=== PATIENT | female | born 1930 ===

== ENCOUNTER → 2016-11-06 | Outpatient (CLI) | payer MEDICARE, OTHER ==
--- NOTE | 2016-11-06 13:13 | XR ---
EXAMINATION TYPE: XR chest 2V DATE OF EXAM: 11/06/2016 COMPARISON: NONE INDICATION: Cough TECHNIQUE: Frontal and lateral views of the chest are obtained. FINDINGS: The heart size is normal. The pulmonary vasculature is normal. The lungs are clear. There is some elevation of the right diaphragm. No suspicious infiltrates are e vident. IMPRESSION: 1. No acute pulmonary process.
== END ==
LOC: RADXRMAIN 12:22
PROVIDERS: ATTEND Internal Medicine
DX: R05 Cough (principal)
CPT/HCPCS: 71020

== ENCOUNTER → 2018-07-15 | Outpatient (CLI) | payer MEDICARE, OTHER ==
--- NOTE | 2018-07-15 21:14 | US ---
EXAMINATION TYPE: US kidneys/renal and bladder DATE OF EXAM: 07/15/2018 COMPARISON: NONE CLINICAL HISTORY: N18.4 Chronic kidney disease, stage 4 (severe). EXAM MEASUREMENTS: Right Kidney: 6.6 x 3.7 x 2.9 cm Left Kidney: 7.8 x 3.6 x 4.2 cm Technically difficult exam. Limited visualization due to atrophic kidneys. Right Kidney: cyst 1.1 x 0.9 x 0.9 cm. Left Kidney: lateral cyst measures 3.7 x 3.2 x 3.2 cm. Bladder: wnl Bilateral Jets seen: No No hydronephrosis or nephrolithiasis. Bladder distends normally. IMPRESSION: Bilateral simple cysts with loss of cortical medullary differentiation compatible with chronic medica l renal disease.
== END | disposition home or self-care (01) ==
LOC: RADUSWWP 15:12
PROVIDERS: ATTEND Internal Medicine
DX: N28.1 Cyst of kidney, acquired (principal); N18.4 Chronic kidney disease, stage 4 (severe)
CPT/HCPCS: 76770

== ENCOUNTER 2020-02-01 15:29 | Inpatient (IN) | payer MEDICARE, OTHER ==
--- NOTE | 2020-02-01 15:51 | ED ---
General Adult HPI - General Chief complaint: Recheck/Abnormal Lab/Rx Stated complaint: Hypertensive, sent by Time Seen by Provider: 02/01/20 15:38 Source: patient, family Mode of arrival: wheelchair - History of Present Illness Initial comments: Dictation was produced using [employer] dictation software. please excuse any grammatical, word or spelling errors. This patient was cared for during a federal and state declared state of emergency secondary to Covid 19 Chief Complaint: 89-year-old female brought in by son for hypertension History of Present Illness: It is an 89-year-old female she was sent in by her primary care physician for elevated blood pressure. Patient is accompanied by son who is a classroom assistant. She is primary language is Azeri. Patient's son is the primary provider of history of present illness. Patient is getting established with a new primary care physician. She was last seen by this individual one month ago. Son does not know what his or her name is. It's previous primary care physician recently retired. She had an appointment last month and had a follow-up appointment today. Allegedly she has kidney problems. Son reports that patient has been asymptomatic. Patient denies any complaints at this time. She had a high measurement for her blood pressure on routine vital sign check. Son does not know what the number was. The ROS documented in this emergency department record has been reviewed and confirmed by me. Those systems with pertinent positive or negative responses have been documented in the HPI. All other systems are other negative and/or noncontributory. PHYSICAL EXAM: General Impression: Alert and oriented x3, not in acute distress HEENT: Normocephalic atraumatic, extra-ocular movements intact, pupils equal and reactive to light bilaterally, mucous membranes moist. Cardiovascular: Heart regular rate and rhythm Chest: Able to complete full sentences, no retractions, no tachypnea Abdomen: abdomen soft, non-tender, non-distended, no organomegaly Musculoskeletal: Pulses present and equal in all extremities, no peripheral edema Motor: no focal deficits noted Neurological: CN II-XII grossly intact, no focal motor or sensory deficits noted Skin: Intact with no visualized rashes Psych: Normal affect and mood ED course: 89-year-old feel presents with clinical presentation consistent with hypertension. Vital signs upon arrival shows blood pressure 230/110, rest of vital signs within acceptable limits. Patient has no pain complaints patient denies any shortness of breath. Denies any numbness and paresthesias to the extremities. Son also reports that patient has been relatively asymptomatic for the last month. She was at her PCPs office for routine appointment according to the son. Laboratory evaluation obtained. CBC unremarkable. Metabolic panel appears to be a baseline. Troponin is negative. Patient given antihypertensive. Considering degree of patient's hypertension and family and patient requested to be admitted. Case is discussed with Dr. Bardales who is agreeable with inpatient admission. Patient given multiple doses of antihypertensives with gradual decrease in blood pressure. Patient be admitted to cardiac telemetry. EKG interpretation: Ventricular rate 61, normal sinus rhythm, TN interval 174, QRS 80, QTc 459. No TN prolongation, no QTC prolongation, no ST or T-wave changes noted. No old EKG for comparison. Overall, this EKG is unremarkable - Related Data Home Medications Medication Instructions Recorded Confirmed Atenolol [Tenormin] 50 mg PO DAILY 02/01/20 02/01/20 Atorvastatin [Lipitor] 80 mg PO HS 02/01/20 02/01/20 Calcitriol [Rocaltrol] 0.25 mcg PO DAILY 02/01/20 02/01/20 Candesartan Cilexetil 8 mg PO BID 02/01/20 02/01/20 Levothyroxine Sodium [Euthyrox] 75 mcg PO DAILY 02/01/20 02/01/20 Omeprazole 20 mg PO DAILY 02/01/20 02/01/20 amLODIPine [Norvasc] 5 mg PO DAILY 02/01/20 02/01/20 glipiZIDE [Glucotrol] 5 mg PO AC-BRKFST 02/01/20 02/01/20 Allergies Allergy/AdvReac Type Severity Reaction Status Date / Time No Known Allergies Allergy Verified 02/01/20 17:08 Review of Systems ROS Statement: Those systems with pertinent positive or pertinent negative responses have been documented in the HPI. ROS Other: All systems not noted in ROS Statement are negative. Past Medical History Past Medical History: Diabetes Mellitus, Hypertension History of Any Multi-Drug Resistant Organisms: None Reported Past Surgical History: Hysterectomy Smoking Status: Never smoker Past Alcohol Use History: None Reported Past Drug Use History: None Reported Course Vital Signs 02/01/20 02/01/20 02/01/20 15:30 16:15 17:41 Temperature 98.8 F Pulse Rate 63 62 58 L Respiratory 18 18 18 Rate Blood Pressure 238/110 190/125 256/126 O2 Sat by Pulse 99 99 98 Oximetry 02/01/20 02/01/20 18:07 18:31 Temperature Pulse Rate 66 Respiratory 18 Rate Blood Pressure 214/108 195/105 O2 Sat by Pulse 98 Oximetry Medical Decision Making - Lab Data Result diagrams: 02/01/20 16:08 02/01/20 16:08 Lab Results 02/01/20 02/01/20 02/01/20 Range/Units 16:08 16:08 16:08 WBC 6.7 (3.8-10.6) k/uL RBC 4.11 (3.80-5.40) m/uL Hgb 12.4 (11.4-16.0) gm/dL Hct 38.3 (34.0-46.0) % MCV 93.0 (80.0-100.0) fL MCH 30.2 (25.0-35.0) pg MCHC 32.5 (31.0-37.0) g/dL RDW 14.0 (11.5-15.5) % Plt Count 153 (150-450) k/uL Neutrophils % 69 % Lymphocytes % 22 % Monocytes % 6 % Eosinophils % 2 % Basophils % 1 % Neutrophils # 4.6 (1.3-7.7) k/uL Lymphocytes # 1.5 (1.0-4.8) k/uL Monocytes # 0.4 (0-1.0) k/uL Eosinophils # 0.1 (0-0.7) k/uL Basophils # 0.0 (0-0.2) k/uL Sodium 141 (137-145) mmol/L Potassium 4.4 (3.5-5.1) mmol/L Chloride 111 H (98-107) mmol/L Carbon Dioxide 20 L (22-30) mmol/L Anion Gap 10 mmol/L BUN 42 H (7-17) mg/dL Creatinine 3.14 H (0.52-1.04) mg/dL Est GFR (CKD-EPI)AfAm 15 (>60 ml/min/1.73 sqM) Est GFR (CKD-EPI)NonAf 13 (>60 ml/min/1.73 sqM) Glucose 151 H (74-99) mg/dL Calcium 9.5 (8.4-10.2) mg/dL Troponin I <0.012 (0.000-0.034) ng/mL Disposition Clinical Impression: Hypertensive disease Disposition: ADMITTED IP TO THIS HOSP Condition: Fair Referrals: None,Stated [Primary Care Provider] - 1-2 days Decision Time: 19:06
[2020-02-01 16:36] LABS: Calcium 9.5 mg/dL (8.4-10.2); Potassium 4.4 mmol/L (3.5-5.1)
[2020-02-01 16:42] LABS: Basophils % (A) 1 %; Eosinophils # (A) 0.1 k/uL (0-0.7); Eosinophils % (A) 2 %; HCT 38.3 % (34.0-46.0); HGB 12.4 gm/dL (11.4-16.0); Lymphocytes # (A) 1.5 k/uL (1.0-4.8); Lymphocytes % (A) 22 %; MCH 30.2 pg (25.0-35.0); MCHC 32.5 g/dL (31.0-37.0); Mean Platelet Volume 8.1; Monocytes # (A) 0.4 k/uL (0-1.0); Monocytes % (A) 6 %; Neutrophils # (A) 4.6 k/uL (1.3-7.7); Neutrophils % (A) 69 %; Platelet Count 153 k/uL (150-450); RBC 4.11 m/uL (3.80-5.40); WBC 6.7 k/uL (3.8-10.6)
[2020-02-01] MEDS ORDERED: LABETALOL 5 MG/ML VIAL MDV IVP STA (17:16)
[2020-02-01] MEDS ORDERED: lisinopriL 5 MG TAB PO STA (17:42)
[2020-02-01] MEDS ORDERED: hydrALAZINE HCL 20 MG/ML 1 ML VIAL IVP STA ×2 (18:09→18:37)
[2020-02-01] MEDS ORDERED: NALOXONE 0.4 MG/ML 1 ML VIAL IV PRN (19:04)
[2020-02-01 19:20] LABS: Appearance,Urine Cloudy (Clear); Bacteria,Urine Many /hpf; Bilirubin,Urine Negative (Negative); Blood,Urine Negative (Negative); Color,Urine Light Yellow; Glucose,Urine (UA) Negative (Negative); Ketones,Urine Negative (Negative); Leukocyte Esterase,Urine Small (Negative); Mucus,Urine Rare /hpf; Nitrite,Urine Negative (Negative); Protein,Urine 2+ (Negative); RBC,Urine 1 /hpf (0-5); Specific Gravity,Urine 1.011 (1.001-1.035); Squamous Epithelial Cell,Urine <1 /hpf (0-4); Urobilinogen,Urine <2.0 mg/dL (<2.0); WBC,Urine 47 /hpf (0-5)
[2020-02-01] MEDS ORDERED: SODIUM CHLORIDE 0.9% 1,000 ML IV ONE (19:30)
[2020-02-01] MEDS ORDERED: GLUCAGON 1 MG/ML VIAL IVP STA (19:30)
[2020-02-01 19:36] LABS: Glucose,Whole Blood 107 mg/dL (75-99)
[2020-02-01] MEDS: SODIUM CHLORIDE 0.9% 1,000 ML IV SCH (19:48)
[2020-02-01 20:42] LABS: Glucose,Whole Blood 191 mg/dL (75-99)
[2020-02-01] MEDS: ATORVASTATIN 80 MG TAB PO SCH (22:48)
[2020-02-01] MEDS: LOSARTAN 50 MG TAB PO SCH (22:48)
[2020-02-01] MEDS: INSULIN ASPART (NovoLOG) 100 UNIT/ML VIAL SQ SCH (22:51)
--- NOTE | 2020-02-01 23:58 | P.HPIM ---
History of Present Illness H&P Date: 02/01/20 Chief Complaint: elevated blood pressure 89 year old female with hypertension and diabetes mellitus , CKD 4 patient has recently established care with new PCP, upon evaluation today , she was found to have elevated blood pressure and was sent to the ED for further management patient does not speak good divehi , and language was a barrier during this interview, however, she was able to understand direct questions and answers with yes and no, she denies any symptoms of chest pain, headache, changes in her vision or hearing, denies any focal neuro deficits, denies any trouble breathing. in the ED, patient son provided the history , i reviewed ED records,. patient presented with elevated blood pressure, but later in the ED after receiving IV BP meds, she had a drop in her blood pressure that improved with IVF hydration . she was admitted for close monitoring of her vital sings. Review of Systems limited review of systems due to language barrier Past Medical History Past Medical History: Diabetes Mellitus, Hypertension History of Any Multi-Drug Resistant Organisms: None Reported Past Surgical History: Hysterectomy Smoking Status: Never smoker Past Alcohol Use History: None Reported Past Drug Use History: None Reported - Past Family History family Family Medical History: No Reported History Medications and Allergies Home Medications Medication Instructions Recorded Confirmed Type Atenolol [Tenormin] 50 mg PO DAILY 02/01/20 02/01/20 History Atorvastatin [Lipitor] 80 mg PO HS 02/01/20 02/01/20 History Calcitriol [Rocaltrol] 0.25 mcg PO DAILY 02/01/20 02/01/20 History Candesartan Cilexetil 8 mg PO BID 02/01/20 02/01/20 History Levothyroxine Sodium [Euthyrox] 75 mcg PO DAILY 02/01/20 02/01/20 History Omeprazole 20 mg PO DAILY 02/01/20 02/01/20 History amLODIPine [Norvasc] 5 mg PO DAILY 02/01/20 02/01/20 History glipiZIDE [Glucotrol] 5 mg PO AC-BRKFST 02/01/20 02/01/20 History Allergies Allergy/AdvReac Type Severity Reaction Status Date / Time No Known Allergies Allergy Verified 02/01/20 17:08 Physical Exam Vitals: Vital Signs Temp Pulse Resp BP Pulse Ox 02/01/20 19:45 62 16 134/70 98 02/01/20 19:40 60 16 112/65 98 02/01/20 19:35 54 L 16 98/61 99 02/01/20 19:25 48 L 16 84/52 99 02/01/20 18:31 195/105 02/01/20 18:07 66 18 214/108 98 02/01/20 17:41 58 L 18 256/126 98 02/01/20 16:15 62 18 190/125 99 02/01/20 15:30 98.8 F 63 18 238/110 99 Intake and Output 02/01/20 02/01/20 02/01/20 06:59 14:59 22:59 Other: Weight 46.266 kg language barrier General: non toxic, no distress, appears at stated age, Derm: no unusual rashes/lesions no unusual ecchymoses, warm, dry. Head: atraumatic, normocephalic, symmetric Eyes: EOMI, anicteric sclera, pupils equal round reactive to light ENT: Nose and ears atraumatic, no thrush, no pharyngeal erythema Neck: No thyromegaly, no cervical lymphadenopathy, trachea midline, supple Mouth: no lip lesion, mucus membranes moist Cardiovascular: S1S2 reg, no murmur, positive posterior tibial pulse bilateral, no edema, capillary refill immediate Lungs: CTA bilateral, no rhonchi, no rales , no accessory muscle use Abdominal: soft, no tenderness to palpation no guarding, no appreciable organomegaly, positive bowel sounds Ext: no gross muscle atrophy, muscle strength 5 out of 5 in all 4 extremities grossly, no contractures Neuro: CN II-XI grossly intact, light touch intact all 4 extremities, finger to nose within normal limits Psych: Alert, orientation to place and person Results CBC & Chem 7: 02/01/20 16:08 02/01/20 16:08 Labs: Abnormal Lab Results - Last 24 Hours (Table) 02/01/20 02/01/20 02/01/20 Range/Units 16:08 18:57 19:30 Chloride 111 H (98-107) mmol/L Carbon Dioxide 20 L (22-30) mmol/L BUN 42 H (7-17) mg/dL Creatinine 3.14 H (0.52-1.04) mg/dL Glucose 151 H (74-99) mg/dL POC Glucose (mg/dL) 107 H (75-99) mg/dL Urine Appearance Cloudy H (Clear) Urine Protein 2+ H (Negative) Ur Leukocyte Esterase Small H (Negative) Urine WBC 47 H (0-5) /hpf Urine Bacteria Many H (None) /hpf Urine Mucus Rare H (None) /hpf 02/01/20 Range/Units 20:41 Chloride (98-107) mmol/L Carbon Dioxide (22-30) mmol/L BUN (7-17) mg/dL Creatinine (0.52-1.04) mg/dL Glucose (74-99) mg/dL POC Glucose (mg/dL) 191 H (75-99) mg/dL Urine Appearance (Clear) Urine Protein (Negative) Ur Leukocyte Esterase (Negative) Urine WBC (0-5) /hpf Urine Bacteria (None) /hpf Urine Mucus (None) /hpf Assessment and Plan Assessment: accelerated hypertension, resolved resume home blood pressure meds close monitoring of vital sings neuro checks Q2hr episode of hypotension and near syncope resolved with IVF in the ED monitor vital signs and library monitor CKD 4, stable avoid nephrotoxic meds monitor renal function and urine output DM , check A1C% insulin sliding scale DVT PPX mechanical CODE STATUS: Full Code Discussed with: Patient Anticipated discharge place: Home
[2020-02-02 06:20] LABS: Glucose,Whole Blood 60 mg/dL (75-99)
[2020-02-02] MEDS: LEVOTHYROXINE 75 MCG TAB PO SCH (06:21)
[2020-02-02 06:39] LABS: Glucose,Whole Blood 85 mg/dL (75-99)
[2020-02-02] MEDS: INSULIN ASPART (NovoLOG) 100 UNIT/ML VIAL SQ SCH ×4 (06:46→21:41)
[2020-02-02] MEDS: atenoloL 50 MG TAB PO SCH (08:46)
[2020-02-02] MEDS: LOSARTAN 50 MG TAB PO SCH ×2 (08:46→20:02)
[2020-02-02] MEDS: PANTOPRAZOLE 40 MG TABLET PO SCH (08:46)
[2020-02-02] MEDS ORDERED: amLODIPine 5 MG TAB PO SCH (09:00)
[2020-02-02 11:40] LABS: Glucose,Whole Blood 133 mg/dL (75-99)
--- NOTE | 2020-02-02 12:41 | ECHOF ---
Referral Reason:HTN, syncooe MEASUREMENTS -------- HEIGHT: 152.4 cm WEIGHT: 46.3 kg BP: 193/84 RVIDd: 2.8 cm (< 3.3) IVSd: 1.1 cm (0.6 - 1.1) LVIDd: 3.4 cm (3.9 - 5.3) LVPWd: 1.1 cm (0.6 - 1.1) IVSs: 1.4 cm LVIDs: 2.5 cm LVPWs: 1.4 cm LA Diam: 2.7 cm (2.7 - 3.8) LAESV Index (A-L): 22.10 ml/m Ao Diam: 3.0 cm (2.0 - 3.7) AV Cusp: 1.1 cm (1.5 - 2.6) MV EXCURSION: 8.460 mm (> 18.000) MV EF SLOPE: 20 mm/s (70 - 150) EPSS: 0.5 cm MV E Waylon: 0.73 m/s MV DecT: 337 ms MV A Waylon: 1.52 m/s MV E/A Ratio: 0.48 AV maxP.79 mmHg AV meanP.01 mmHg AR PHT: 905 ms RAP: 5.00 mmHg RVSP: 28.02 mmHg FINDINGS -------- Sinus rhythm. Suboptimal image quality - poor subcostal views. The left ventricular size is normal. There is borderline concentric left ventricular hypertrophy. Overall left ventricular systolic function is normal with, an EF between 60 - 65 %. The right ventricle is normal in size. Normal LA size by volume 22+/-6 ml/m2. The right atrium is normal in size. Aortic valve is trileaflet and is moderately thickened. There is mild aortic regurgitation. There is mild aortic stenosis present. Peak/mean gradient across the Aortic Valve is 18.79mmHg / 11.01mm Hg. The mitral valve leaflets are moderately thickened. Moderate mitral annular calcification present. Mild mitral regurgitation is present. Mild tricuspid regurgitation present. Right ventricular systolic pressure is normal at < 35 mmHg. Trace/mild (physiologic) pulmonic regurgitation. The aortic root size is normal. IVC Not well visulized. There is no pericardial effusion. CONCLUSIONS -------- 1. The left ventricular size is normal. 2. There is borderline concentric left ventricular hypertrophy. 3. Overall left ventricular systolic function is normal with, an EF between 60 - 65 %. 4. Aortic valve is trileaflet and is moderately thickened. 5. There is mild aortic regurgitation. 6. There is mild aortic stenosis present. 7. Peak/mean gradient across the Aortic Valve is 18.79mmHg / 11.01mmHg. 8. The mitral valve leaflets are moderately thickened. 9. Moderate mitral annular calcification present. 10. Mild mitral regurgitation is present. 11. Mild tricuspid regurgitation present. 12. Trace/mild (physiologic) pulmonic regurgitation. 13. There is no pericardial effusion. CORRECTIONAL CASE MANAGER: Ariella Meza RDCS
--- NOTE | 2020-02-02 16:37 | P.PN ---
Subjective Progress Note Date: 02/02/20 Patient was seen and examined. No acute events overnight. Her son is at bedside providing majority of the history. Son states that patient has no complaints. Son states that he is in charge of pending medications to his mother and she is very compliant with her medication. Objective - Vital Signs Vital signs: Vital Signs Temp 97.6 F 02/02/20 08:40 Pulse 58 L 02/02/20 13:53 Resp 16 02/02/20 11:40 BP 135/87 02/02/20 13:53 Pulse Ox 98 02/02/20 11:40 Intake & Output 02/01/20 02/02/20 02/02/20 18:59 06:59 18:59 Intake Total 240 Output Total 100 Balance 140 Weight 46.266 kg 46.266 kg Intake: Oral 240 Output: Urine 100 Other: Voiding Method Toilet Toilet Bedside Commode Bedside Commode Diaper Diaper # Voids 0 # Bowel Movements 1 1 - Exam General: [non toxic], [no distress], [appears at stated age] Derm: [warm], [dry] Head: [atraumatic], [normocephalic], [symmetric] Eyes: [EOMI], [no lid lag], [anicteric sclera] Mouth: [no lip lesion], [mucus membranes moist] Cardiovascular: [S1S2 reg], [systolic murmur], [positive DP pulse bilateral], Lungs: [CTA bilateral], [no rhonchi, no rales] , [no accessory muscle use] Abdominal: [soft], [ nontender to palpation], [no guarding], [no appreciable organomegaly] Ext: [no gross muscle atrophy], [no edema], [no contractures] Neuro: [no focal neuro deficits] Psych: [Alert], [oriented], [appropriate affect] - Labs CBC & Chem 7: 02/01/20 16:08 02/01/20 16:08 Labs: Abnormal Lab Results - Last 24 Hours (Table) 02/01/20 02/01/20 02/01/20 Range/Units 16:08 18:57 19:30 Chloride 111 H (98-107) mmol/L Carbon Dioxide 20 L (22-30) mmol/L BUN 42 H (7-17) mg/dL Creatinine 3.14 H (0.52-1.04) mg/dL Glucose 151 H (74-99) mg/dL POC Glucose (mg/dL) 107 H (75-99) mg/dL Urine Appearance Cloudy H (Clear) Urine Protein 2+ H (Negative) Ur Leukocyte Esterase Small H (Negative) Urine WBC 47 H (0-5) /hpf Urine Bacteria Many H (None) /hpf Urine Mucus Rare H (None) /hpf 02/01/20 02/02/20 02/02/20 Range/Units 20:41 06:14 11:35 Chloride (98-107) mmol/L Carbon Dioxide (22-30) mmol/L BUN (7-17) mg/dL Creatinine (0.52-1.04) mg/dL Glucose (74-99) mg/dL POC Glucose (mg/dL) 191 H 60 L 133 H (75-99) mg/dL Urine Appearance (Clear) Urine Protein (Negative) Ur Leukocyte Esterase (Negative) Urine WBC (0-5) /hpf Urine Bacteria (None) /hpf Urine Mucus (None) /hpf Microbiology - Last 24 Hours (Table) 02/01/20 18:57 Urine Culture - Preliminary Urine,Voided Assessment and Plan Assessment: Accelerated hypertension Episode of hypotension and near syncope Diabetes mellitus Chronic kidney disease Patient's current blood pressure is 135/87. She has been restarted on her home antihypertensive medication of amlodipine, atenolol and losartan. Echocardiogram shows EF 60-65% with borderline concentric LVH and mild aortic regurgitation, mild aortic stenosis, mild mitral regurgitation and mild tricuspid regurgitation. Plans: Blood pressure significantly improved. We will continue to monitor her vitals overnight. Medications to be adjusted if necessary. Patient had an episode of hypotension and near syncope in the ED. This was thought to be related to labetalol 20 mg IV that she received in the ED. Her hypotension did resolve with glucagon and IV fluids. Plans: Continue to monitor. Telemetry monitoring. [id number] glucose 133. Plans: Insulin sliding scale. Regular accuchecks. Hypoglycemic precautions. Creatinine 3.14. Patient reports history of chronic kidney disease. Plans: Av oid nephrotoxins. Obtain renal ultrasound. [Given her lability of blood pressure, will continue to observe the patient overnight. Anticipate DC home tomorrow if blood pressure continues to be cont rolled. Nephrology consulted for chronic kidney disease. She is pending clinical improvement. Likely DC in 1-2 days.
[2020-02-02 17:19] LABS: Glucose,Whole Blood 131 mg/dL (75-99)
[2020-02-02 20:42] LABS: Glucose,Whole Blood 206 mg/dL (75-99)
[2020-02-02] MEDS: ATORVASTATIN 80 MG TAB PO SCH (21:41)
[2020-02-02] MEDS: SODIUM CHLORIDE 0.9% 1,000 ML IV SCH (21:41)
[2020-02-03 06:15] LABS: Glucose,Whole Blood 104 mg/dL (75-99)
[2020-02-03] MEDS: LEVOTHYROXINE 75 MCG TAB PO SCH (06:36)
[2020-02-03] MEDS: INSULIN ASPART (NovoLOG) 100 UNIT/ML VIAL SQ SCH ×2 (06:36→12:10)
--- NOTE | 2020-02-03 08:23 | US ---
EXAMINATION TYPE: US renals and bladder DATE OF EXAM: 02/03/2020 COMPARISON: Renal ultrasound July 15, 2018 CLINICAL HISTORY: elevated Cr. EXAM MEASUREMENTS: Right Kidney: 6.5 x 3.4 x 3.3 cm Left Kidney: 9.9 x 4.1 x 3.8 cm Technically difficult exam as kidneys are echogenic and hard to visualize. Right Kidney: Atrophied, cyst lower pole measures 1.2 x 1.2 x 1.2 cm. Left Kidney: Multiple cysts, largest upper pole measures 4.5 x 3.7 x 4.1 cm. Bladder: Not well distended. Bilateral Jets seen: no There is increased cortical echogenicity bilaterally. Diminished size right kidney redemonstrated. St able 1.4 cm thin-walled cyst right kidney. Multiple scattered cysts throughout the left kidney includ ing largest thin-walled cyst upper pole level. No gross hydronephrosis bilaterally. Bladder poorly di stended and thus suboptimally evaluated. IMPRESSION: Suboptimal study. No hydronephrosis noted bilaterally. Evidence of chronic medical renal disease redemonstrated.
[2020-02-03] MEDS ORDERED: amLODIPine 10 MG TAB PO SCH (09:00)
[2020-02-03] MEDS: LOSARTAN 50 MG TAB PO SCH (09:13)
[2020-02-03] MEDS: PANTOPRAZOLE 40 MG TABLET PO SCH (09:14)
[2020-02-03] MEDS: atenoloL 50 MG TAB PO SCH (09:14)
[2020-02-03 09:39] LABS: Potassium 3.8 mmol/L (3.5-5.1)
--- NOTE | 2020-02-03 10:10 | P.DS ---
Providers Date of admission: 02/01/20 19:05 Expected date of discharge: 02/03/20 Attending physician: Luci Briones DO Consults: 02/02/20 16:31 Consult Physician Routine Consulting Provider: Ced Easley Consult Reason/Comments: CKD Do you want consulting provider notified?: Yes Primary care physician: Stated None Hospital Course: 89-year-old female with PMH of hypertension, diabetes mellitus, chronic kidney disease stage IV recently established care with new PCP presents to the ED for elevated blood pressure. This was discovered during a routine appointment and patient was asymptomatic. She denied any chest pain, headaches, vision or hearing changes, focal neurologic deficits or shortness of breath in the ED. Her blood pressure when she first came to the ED was 238/110. She was given hydralazine IV and labetalol IV which dropped her blood pressure to 84/52. She had an episode of syncope in the ED which resolved with IVF and glucagon. She was admitted for further management of her blood pressure. Echocardiogram was done which showed EF 60-65% with borderline concentric LVH and mild aortic stenosis and regurgitation, mild Christopher and tricuspid regurgitation. She was restarted on her home antihypertensive medication. Nephrology was consulted for her chronic kidney disease and recommended renal ultrasound which showed chronic renal disease. Nephrology recommended hydralazine 25 mg by mouth 3 times a day in addition to her home medications. She did have a urinalysis which showed small leukocyte esterase with urine culture growing gram-negative bacilli. She received Rocephin while hospitalized and transitioned to Bactrim for discharge. Patient was seen and examined. No acute events overnight. Limited Pashto answering with yes or no. She has no complaints. Requesting to have IV taken out. She denies any chest pain, shortness of breath or palpitations. General: [non toxic], [no distress], [appears at stated age] Derm: [warm], [dry] Head: [atraumatic], [normocephalic], [symmetric] Eyes: [EOMI], [no lid lag], [anicteric sclera] Mouth: [no lip lesion], [mucus membranes moist] Cardiovascular: [S1S2 reg], [systolic murmur], [positive DP pulse bilateral], Lungs: [CTA bilateral], [no rhonchi, no rales] , [no accessory muscle use] Abdominal: [soft], [ nontender to palpation], [no guarding], [no appreciable organomegaly] Ext: [no gross muscle atrophy], [no edema], [no contractures] Neuro: [no focal neuro deficits] Psych: [Alert], [oriented], [appropriate affect] Accelerated hypertension Episode of hypotension and near syncope Diabetes mellitus Chronic kidney disease Patient's current blood pressure is SBP of 200 as discussed with nursing prior to morning medications. She has been restarted on her home antihypertensive medication of amlodipine, atenolol and losartan. Echocardiogram shows EF 60-65% with borderline concentric LVH and mild aortic regurgitation, mild aortic stenos is, mild mitral regurgitation and mild tricuspid regurgitation. Plans: Blood pressure significantly improved. Nephrology recommends hydralazine 25 mg by mouth 3 times a day.. Medications to be adjusted if necessary. Patient had an episode of hypotension and near syncope in the ED. This was thought to be related to labetalol 20 mg IV that she received in the ED. Her hypotension did resolve with glucagon and IV fluids. Plans: Continue to monitor. Telemetry monitoring. [id number] glucose 104. Plans: Insulin sliding scale. Regular accuchecks. Hypoglycemic precautions. Creatinine 3.14. Patient reports history of chronic kidney disease. Renal ultrasound shows medical renal disease Plans: Avoid nephrotoxins. Continue calcitriol. Follow-up nephrology in the outpatient setting. [Anticipated DC home today if blood pressure comes down after morning medication. Hydralazine has been started as recommended by nephrology. She will need to follow-up with her PCP within 3 days and nephrology within 1 week of discharge. This complex discharge took about 35 minutes to complete.] Pertinent Studies: Echocardiogram, renal ultrasound Patient Condition at Discharge: Stable Plan - Discharge Summary Discharge Rx Participant: No New Discharge Prescriptions: New hydrALAZINE HCL [Apresoline] 25 mg PO TID #90 tab Sulfamethox-Tmp 800-160Mg [Bactrim DS 800-160 mg] 1 tab PO Q12HR #4 tab Continue glipiZIDE [Glucotrol] 5 mg PO AC-BRKFST amLODIPine [Norvasc] 5 mg PO DAILY Omeprazole 20 mg PO DAILY Levothyroxine Sodium [Euthyrox] 75 mcg PO DAILY Candesartan Cilexetil 8 mg PO BID Calcitriol [Rocaltrol] 0.25 mcg PO DAILY Atorvastatin [Lipitor] 80 mg PO HS Atenolol [Tenormin] 50 mg PO DAILY Docusate [Colace] 100 mg PO DAILY PRN PRN Reason: Constipation Cyanocobalamin [Vitamin B-12] 500 mcg PO DAILY Discharge Medication List Atenolol [Tenormin] 50 mg PO DAILY 02/01/20 [History] Atorvastatin [Lipitor] 80 mg PO HS 02/01/20 [History] Calcitriol [Rocaltrol] 0.25 mcg PO DAILY 02/01/20 [History] Candesartan Cilexetil 8 mg PO BID 02/01/20 [History] Levothyroxine Sodium [Euthyrox] 75 mcg PO DAILY 02/01/20 [History] Omeprazole 20 mg PO DAILY 02/01/20 [History] amLODIPine [Norvasc] 5 mg PO DAILY 02/01/20 [History] glipiZIDE [Glucotrol] 5 mg PO AC-BRKFST 02/01/20 [History] Cyanocobalamin [Vitamin B-12] 500 mcg PO DAILY 02/02/20 [History] Docusate [Colace] 100 mg PO DAILY PRN 02/02/20 [History] Sulfamethox-Tmp 800-160Mg [Bactrim DS 800-160 mg] 1 tab PO Q12HR #4 tab 02/03/20 [Rx] hydrALAZINE HCL [Apresoline] 25 mg PO TID #90 tab 02/03/20 [Rx] Follow up Appointment(s)/Referral(s): None,Stated [Primary Care Provider] - 1-2 days Ced Easley DO [STAFF PHYSICIAN] - 1 Week Activity/Diet/Wound Care/Special Instructions: Diet; Low salt FU PCP within 3 days of DC. FU with Nephrology within 1 week of DC. Take all meds as advised. Come back to the ED or call 911 for worsening headaches, chest pain, SOB, palpitations, dizziness or syncopal episodes. Discharge Disposition: HOME SELF-CARE
[2020-02-03] MEDS ORDERED: hydrALAZINE HCL 20 MG/ML 1 ML VIAL IVP PRN (10:18)
[2020-02-03] MEDS ORDERED: SODIUM BICARBONATE TAB 650 MG TAB PO SCH (10:30)
--- NOTE | 2020-02-03 10:34 | P.NPCON ---
History of Present Illness - Reason for Consult acute renal failure, chronic renal failure - History of Present Illness Reason for consultation: Acute kidney injury on chronic kidney disease. History of present illness: Patient is a 89-year-old female seen in renal consultation for acute kidney injury on chronic kidney disease. Patient was sent to the hospital for elevated blood pressure. Her blood pressure has been quite high the systolic blood pressure over 200 at times. Dose of amlodipine was increased from 5 mg to 10 mg daily today. She is also on losartan and atenolol. Patient is not a very reliable historian. He is also a language barrier. Patient's creatinine is December 2018 was 2.7 and was 2.9 in February 2019. In December 2019 her creatinine was 3.8. This admission was 3.14 and is fairly stable at 3.22 today. She does have history of kidney disease. She has not been seen in our office outpatient. She has long-standing history of diabetes mellitus as well as high blood pressure. In the emergency her blood pressure did drop down to systolic 80s to 90s with IV antihypertensives and subsequently improved with IV hydration. Blood pressure orally this morning was 151/88. No edema. Denies use of nonsteroidals. Oral intake fair. No vomiting or diarrhea. Vital signs are stable. General: The patient appeared well nourished and normally developed. HEENT: Head exam is unremarkable. Neck is without jugular venous distension. LUNGS: Breath sounds decreased. HEART: Rate and Rhythm are regular. ABDOMEN: Soft, nontender. EXTREMITITES: No clubbing, cyanosis, or edema. Past Medical History Past Medical History: Diabetes Mellitus, Hypertension Additional Past Medical History / Comment(s): Pt was supposed to have eye surgery a year or two ago and was cancelled due to hypertension. Pt was supposed to meet with a cash poster last year and never did. History of Any Multi-Drug Resistant Organisms: None Reported Past Surgical History: Hysterectomy Past Anesthesia/Blood Transfusion Reactions: No Reported Reaction Smoking Status: Never smoker Past Alcohol Use History: None Reported Past Drug Use History: None Reported - Past Family History family Family Medical History: No Reported History Medications and Allergies Home Medications Medication Instructions Recorded Confirmed Type Atenolol [Tenormin] 50 mg PO DAILY 02/01/20 02/01/20 History Atorvastatin [Lipitor] 80 mg PO HS 02/01/20 02/01/20 History Calcitriol [Rocaltrol] 0.25 mcg PO DAILY 02/01/20 02/01/20 History Candesartan Cilexetil 8 mg PO BID 02/01/20 02/01/20 History Levothyroxine Sodium [Euthyrox] 75 mcg PO DAILY 02/01/20 02/01/20 History Omeprazole 20 mg PO DAILY 02/01/20 02/01/20 History amLODIPine [Norvasc] 5 mg PO DAILY 02/01/20 02/01/20 History glipiZIDE [Glucotrol] 5 mg PO AC-BRKFST 02/01/20 02/01/20 History Cyanocobalamin [Vitamin B-12] 500 mcg PO DAILY 02/02/20 02/02/20 History Docusate [Colace] 100 mg PO DAILY PRN 02/02/20 02/02/20 History Sulfamethox-Tmp 800-160Mg [Bactrim 1 tab PO Q12HR #4 tab 02/03/20 Rx DS 800-160 mg] hydrALAZINE HCL [Apresoline] 25 mg PO TID #90 tab 02/03/20 Rx Allergies Allergy/AdvReac Type Severity Reaction Status Date / Time No Known Allergies Allergy Verified 02/01/20 17:08 Physical Exam Vitals: Vital Signs Temp Pulse Pulse Pulse Pulse Resp BP 02/03/20 04:00 97.5 F L 64 58 L 16 151/88 02/03/20 00:00 97.8 F 58 L 58 L 16 160/79 02/02/20 22:36 188/84 02/02/20 20:00 98.5 F 60 16 187/84 02/02/20 16:55 98.6 F 68 16 140/93 02/02/20 13:53 58 L 02/02/20 11:40 70 58 L 16 163/77 BP Pulse Ox 02/03/20 04:00 98 02/03/20 00:00 98 02/02/20 22:36 02/02/20 20:00 97 02/02/20 16:55 99 02/02/20 13:53 135/87 02/02/20 11:40 98 Intake and Output 02/02/20 02/03/20 02/03/20 22:59 06:59 14:59 Intake Total 120 Output Total 300 Balance 120 -300 Intake: Oral 120 Output: Urine 300 Other: Voiding Method Toilet Toilet Bedside Commode Bedside Commode Diaper Diaper # Voids 0 2 # Bowel Movements 1 Weight 46.1 kg Results - Lab Results Most recent lab results Calcium 9.0 mg/dL (8.4-10.2) 02/03/20 08:50 02/01/20 16:08 02/03/20 08:50 Assessment and Plan Plan: Assessment: 1. Acute kidney injury secondary to hemodynamic ATN. Creatinine 3.14 on admission and is fairly stable at 3.22 today. No evidence of hydronephrosis noted on kidney ultrasound. 2. Chronic kidney disease most likely stage IV. Creatinine in December 2018 was 2.7. December 2019 it was 3.8. 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 3. UTI with urine culture positive for gram-negative bacilli maintained on antibiotics. 4. Accelerated hypertension. Better controlled. 5. Right renal atrophy. There is concern for renal artery stenosis. 6. Metabolic acidosis secondary to acute kidney injury. Plan: Encourage oral intake. Quantify proteinuria. Maintain current antihypertensives. Dose of amlodipine increased today. Add hydralazine 10 mg IV every 4 hours as needed for systolic blood pressure greater than 160. If she continues to require the IV hydralazine, I will add scheduled oral hydralazine. Add oral sodium bicarb. Check renal ultrasound with Doppler. Avoid nephrotoxins. Patient will need to follow-up outpatient to establish chronic kidney disease care. Thank you for the consultation. I will continue to follow the patient with you during her hospital stay.
[2020-02-03 11:12] VITALS: TEMP 98.4
[2020-02-03 11:13] VITALS: BP 186/78; RESP 16
--- NOTE | 2020-02-03 11:22 | US ---
EXAMINATION TYPE: US renal artery duplex complete DATE OF EXAM: 02/03/2020 COMPARISON: Renal US performed same day CLINICAL HISTORY: htn, right renal atrophy. MEASUREMENTS: RENAL SIZE: Rt Kidney: 6.5 x 3.4 x 3.3 cm Lt Kidney: 9.9 x 4.1 x 3.8 cm RESISTANCE INDEX Right: 0.53 Left: 0.71 RA/AO RATIO (< 3.5 ) Right: 1.4 Left: 1.5 RA VELOCITY ( < 180 cm/s) Right: 68 Left: 72 Extremely limited study due to 89 year old patient being unable to hold breath for exam. Kidneys are echogenic and difficult to see. Flash artifact limiting doppler evaluation. Renals demonstrate multiple cysts. Limited evaluation of right renal artery. No elevated velocities demonstrated on dopplers obtained. Left renal artery seen better than right with no elevated velociti es demonstrated. No ultrasound evidence for renal artery stenosis on limited exam. IMPRESSION: Suboptimal study particularly on the right without convincing ultrasound evidence for foc al renal artery stenosis. Advise further investigation with CTA or MRA of the abdomen if this remains clinical concern.
[2020-02-03 11:34] LABS: Glucose,Whole Blood 266 mg/dL (75-99)
[2020-02-03 14:21] VITALS: PULSE 61
--- NOTE | 2020-02-05 13:16 | CDI ---
Documentation Clarification Form Date: 02/05/20 From: Kari Jones CCS Phone: If you have a question about this query, please contact Kayleigh Khan, Manager Database at [phone] between 8am and 5pm. Admit Date: 02/01/20 Discharge Date:02/03/20 Patient Name: Shannan Patel Visit Number: [id number] ATTENTION: The Clinical Documentation Specialists (CDI) and [facility] Coding Staff appreciate your assistance in clarifying documentation. Please respond to the clarification below the line at the bottom and electronically sign. The CDI & [facility] Coding staff will review the response and follow-up if needed. Please note: Queries are made part of the Legal Health Record. If you have any questions, please contact the author of this message via ITS. Dear Dr. Andrews, The patient presented with accelerated hypertension. History/Risk Factors: HTN, CKD, UTI, DM, ATN Clinical Indicators: Accelerated blood pressure Vital Signs: BP 230/110, 256/126, 238/110 Treatment: Apresoline 10 mg IVP, Trandate 20 mg IVP, Norvasc 10 mg PO Daily Consults: In your professional opinion, can you please clarify accelerated hypertension? Hypertensive Urgency Hypertensive Emergency Other, please specify Unable to determine No longer on staff. DB 03/13/20 CARMELO
== END 2020-02-03 15:12 | disposition home health service (06) | DRG 682 ==
LOC: EC 15:29 → 3SCARD 19:05
PROVIDERS: ADMIT Internal Medicine; ATTEND Internal Medicine
DX: I13.10 Hypertensive heart and chronic kidney disease without heart failure, with stage 1 through stage 4 chronic kidney disease, or unspecified chronic kidney disease (principal); N17.0 Acute kidney failure with tubular necrosis; E87.2 Acidosis; N18.4 Chronic kidney disease, stage 4 (severe); N39.0 Urinary tract infection, site not specified; E11.22 Type 2 diabetes mellitus with diabetic chronic kidney disease; I95.9 Hypotension, unspecified; Z66 Do not resuscitate; N05.8 Unspecified nephritic syndrome with other morphologic changes; I08.3 Combined rheumatic disorders of mitral, aortic and tricuspid valves; K59.00 Constipation, unspecified; Z79.899 Other long term (current) drug therapy; Z79.890 Hormone replacement therapy; Z79.84 Long term (current) use of oral hypoglycemic drugs; Z90.710 Acquired absence of both cervix and uterus
CPT/HCPCS: 36415; 76770; 80048; 81001; 84484; 85025; 87077; 87086; 87186; 93005; 93306; 93975; 96361; 96374; 96375; 99284

== ENCOUNTER 2020-02-16 16:57 | Inpatient (IN) | payer MEDICARE, OTHER ==
--- NOTE | 2020-02-16 17:40 | ED ---
General Adult HPI - General Chief complaint: Abdominal Pain Stated complaint: abd pain Time Seen by Provider: 02/16/20 17:10 Source: patient, EMS Mode of arrival: EMS Limitations: no limitations - History of Present Illness Initial comments: Dictation was produced using [employer] dictation software. please excuse any grammatical, word or spelling errors. This patient was cared for during a federal and state declared state of emergency secondary to Covid 19 Chief Complaint: 89-year-old female presents with abdominal pain History of Present Illness: An is an 89-year-old female she has past medical history of diabetes, hypertension and hysterectomy. She was brought by her son who currently resides in [place]. Patient was recently seen and admitted to our hospital for elevated blood pressure. Her son reports that they were just w atching TV when she began complaining of lower abdominal pain. Patient is a poor historian. Son asked her multiple questions however she refused. An associated appear bit nauseated. Patient is a poor historian. She states she feels okay now Son reports that her symptoms only began a few hours ago. His concern that perhaps she has a urine infection. The ROS documented in this emergency department record has been reviewed and confirmed by me. Those systems with pertinent positive or negative responses have been documented in the HPI. All other systems are other negative and/or noncontributory. PHYSICAL EXAM: General Impression: Alert and oriented x3, not in acute distress HEENT: Normocephalic atraumatic, extra-ocular movements intact, pupils equal and reactive to light bilaterally, mucous membranes moist. Cardiovascular: Heart regular rate and rhythm Chest: Able to complete full sentences, no retractions, no tachypnea Abdomen: abdomen soft, tenderness to palpation in the bilateral lower abdominal quadrants, non-distended, no organomegaly Musculoskeletal: Pulses present and equal in all extremities, no peripheral edema Motor: no focal deficits noted Neurological: CN II-XII grossly intact, no focal motor or sensory deficits noted Skin: Intact with no visualized rashes Psych: Normal affect and mood ED course: 89-year-old male presents with chief complaint of abdominal pain. Patient is a poor historian. Son at bedside reports that her symptoms began a couple hours ago. Vital signs upon arrival are within acceptable limits. Laboratory evaluation obtained. CBC remarkable. Metabolic panel shows elevated renal markers which appear to be around patient's baseline. Lipase is 3921. CT of the abdomen and pelvis without contrast was obtained showing cholelithiasis. Is also findings of colitis.Gallbladder ultrasound shows multiple gallstones. Clinical presentation concerning for gallstone pancreatitis. Case is discussed with Dr. Monahan was went except patient's care. General surgery and gastroenterology will be consulted. EKG interpretation: Ventricular rate 57, sinus bradycardia,. Interval 162, QRS 90, QTC 473. No NM prolongation, no QTC prolongation, no ST or T-wave changes noted. EKG compared to over 12/24/2019 showing no changes. Overall, this EKG is unremarkable - Related Data Home Medications Medication Instructions Recorded Confirmed Atenolol [Tenormin] 50 mg PO DAILY 02/01/20 02/16/20 Atorvastatin [Lipitor] 80 mg PO HS 02/01/20 02/16/20 Calcitriol [Rocaltrol] 0.25 mcg PO DAILY 02/01/20 02/16/20 Candesartan Cilexetil 8 mg PO BID 02/01/20 02/16/20 Levothyroxine Sodium [Euthyrox] 75 mcg PO DAILY 02/01/20 02/16/20 Omeprazole 20 mg PO DAILY 02/01/20 02/16/20 amLODIPine [Norvasc] 5 mg PO DAILY 02/01/20 02/16/20 glipiZIDE [Glucotrol] 5 mg PO AC-BRKFST 02/01/20 02/16/20 Cyanocobalamin [Vitamin B-12] 500 mcg PO DAILY 02/02/20 02/16/20 Docusate [Colace] 100 mg PO DAILY PRN 02/02/20 02/16/20 Previous Rx's Medication Instructions Recorded hydrALAZINE HCL [Apresoline] 25 mg PO TID #90 tab 02/03/20 Allergies Allergy/AdvReac Type Severity Reaction Status Date / Time No Known Allergies Allergy Verified 02/16/20 20:21 Review of Systems ROS Statement: Those systems with pertinent positive or pertinent negative responses have been documented in the HPI. ROS Other: All systems not noted in ROS Statement are negative. Past Medical History Past Medical History: Diabetes Mellitus, Hypertension Additional Past Medical History / Comment(s): Pt was supposed to have eye surgery a year or two ago and was cancelled due to hypertension. Pt was supposed to meet with a substance abuse therapist last year and never did. History of Any Multi-Drug Resistant Organisms: None Reported Past Surgical History: Hysterectomy Past Anesthesia/Blood Transfusion Reactions: No Reported Reaction Smoking Status: Never smoker Past Alcohol Use History: None Reported Past Drug Use History: None Reported - Past Family History family Family Medical History: No Reported History General Exam Limitations: no limitations Course Vital Signs 02/16/20 02/16/20 02/16/20 17:08 19:27 21:38 Temperature 97.4 F L Pulse Rate 61 82 56 L Respiratory 16 18 Rate Blood Pressure 185/87 192/87 180/84 O2 Sat by Pulse 97 96 Oximetry Medical Decision Making - Lab Data Result diagrams: 02/16/20 17:33 02/16/20 17:33 Lab Results 02/16/20 02/16/20 02/16/20 Range/Units 17:33 17:33 17:33 WBC 7.0 (3.8-10.6) k/uL RBC 3.83 (3.80-5.40) m/uL Hgb 11.8 (11.4-16.0) gm/dL Hct 34.9 (34.0-46.0) % MCV 91.3 (80.0-100.0) fL MCH 30.9 (25.0-35.0) pg MCHC 33.8 (31.0-37.0) g/dL RDW 14.1 (11.5-15.5) % Plt Count 145 L (150-450) k/uL MPV 8.1 Neutrophils % 72 % Lymphocytes % 17 % Monocytes % 5 % Eosinophils % 3 % Basophils % 0 % Neutrophils # 5.0 (1.3-7.7) k/uL Lymphocytes # 1.2 (1.0-4.8) k/uL Monocytes # 0.4 (0-1.0) k/uL Eosinophils # 0.2 (0-0.7) k/uL Basophils # 0.0 (0-0.2) k/uL Sodium 135 L (137-145) mmol/L Potassium 5.0 (3.5-5.1) mmol/L Chloride 109 H (98-107) mmol/L Carbon Dioxide 20 L (22-30) mmol/L Anion Gap 6 mmol/L BUN 50 H (7-17) mg/dL Creatinine 3.07 H (0.52-1.04) mg/dL Est GFR (CKD-EPI)AfAm 15 (>60 ml/min/1.73 sqM) Est GFR (CKD-EPI)NonAf 13 (>60 ml/min/1.73 sqM) Glucose 185 H (74-99) mg/dL Calcium 8.8 (8.4-10.2) mg/dL Total Bilirubin 0.6 (0.2-1.3) mg/dL AST 44 H (14-36) U/L ALT 34 (4-34) U/L Alkaline Phosphatase 53 (38-126) U/L Total Protein 6.2 L (6.3-8.2) g/dL Albumin 3.5 (3.5-5.0) g/dL Lipase 3921 H (23-300) U/L Urine Color Light Yellow Urine Appearance Clear (Clear) Urine pH 6.0 (5.0-8.0) Ur Specific [place] 1.010 (1.001-1.035) Urine Protein 2+ H (Negative) Urine Glucose (UA) 1+ H (Negative) Urine Ketones Negative (Negative) Urine Blood Negative (Negative) Urine Nitrite Negative (Negative) Urine Bilirubin Negative (Negative) Urine Urobilinogen <2.0 (<2.0) mg/dL Ur Leukocyte Esterase Negative (Negative) Urine RBC 1 (0-5) /hpf Urine WBC 1 (0-5) /hpf Ur Squamous Epith Cells <1 (0-4) /hpf Urine Bacteria Occasional H (None) /hpf Urine Mucus Rare H (None) /hpf Disposition Clinical Impression: Gallstone pancreatitis Disposition: ADMITTED IP TO THIS [facility] Condition: Fair Referrals: None,Stated [Primary Care Provider] - 1-2 days Decision Time: 22:03
[2020-02-16 17:57] LABS: Basophils % (A) 0 %; Eosinophils # (A) 0.2 k/uL (0-0.7); Eosinophils % (A) 3 %; HCT 34.9 % (34.0-46.0); HGB 11.8 gm/dL (11.4-16.0); Lymphocytes # (A) 1.2 k/uL (1.0-4.8); Lymphocytes % (A) 17 %; MCH 30.9 pg (25.0-35.0); MCHC 33.8 g/dL (31.0-37.0); MCV 91.3 fL (80.0-100.0); Mean Platelet Volume 8.1; Monocytes # (A) 0.4 k/uL (0-1.0); Monocytes % (A) 5 %; Neutrophils % (A) 72 %; Platelet Count 145 k/uL (150-450); RBC 3.83 m/uL (3.80-5.40); RDW 14.1 % (11.5-15.5)
[2020-02-16 18:10] LABS: Albumin 3.5 g/dL (3.5-5.0); Calcium 8.8 mg/dL (8.4-10.2); Total Bilirubin 0.6 mg/dL (0.2-1.3); Total Protein 6.2 g/dL (6.3-8.2)
--- NOTE | 2020-02-16 19:27 | CT ---
EXAMINATION TYPE: CT abdomen pelvis wo con DATE OF EXAM: 02/16/2020 COMPARISON: None HISTORY: Generalized pain with nausea CT DLP: 323.4 mGycm Automated exposure control for dose reduction was used. Images obtained from the diaphragm to the floor the pelvis without contrast. FINDINGS: Heart is enlarged. There is some patchy atelectasis and minimal infiltrate at the lung bases. There i s no pericardial effusion. There is no pleural effusion. Thoracic aorta is atheromatous. There are multiple calcified gallstones. Gallbladder is large and measures 4 cm in diameter. Liver shows no focal defect. The stomach is large. Spleen is intact. There is no sign of pancreatic m ass. There is mild wall thickening of the stomach. There is 2 cm low-density left adrenal mass consistent with benign disease. There are renal multiple cortical cysts that measure up to 4 cm. There is no retroperitoneal adenopathy. There is no hydroneph rosis. Ureters are not dilated. Abdominal aorta is atheromatous. There is a 3 x 1.5 cm fat density ma ss at the cecum consistent with lipoma. There is 3 cm low-density mass consistent with lipoma of the distal transverse colon. Bladder distends smoothly. There is no evidence of a pelvic mass. There is m ild wall thickening of the rectum. There are numerous sigmoid diverticula. I see no sign of diverticu litis. Appendix is not definitely seen. There is no sign of thickened appendix. There are multiple los o michael the lower anterior abdomen. There is no inguinal hernia. Lumbar vertebra have normal alignment. Posterior elements are intact. Bony pelvis is intact. Lumbar v ertebra show no compression fracture. Hip joints are intact. IMPRESSION: Mild atelectasis and scarring at the lung bases. Cholelithiasis. Mild gastric wall thickening could r elate to hypertrophic gastritis. No evidence of a bowel obstruction. There is evidence of a lipoma of the ascending colon and also the distal transverse colon. Atherosclerotic vascular disease. Colonic diverticulosis without diverticulitis. Mild wall thickening of the rectum suggestive of focal colitis.
--- NOTE | 2020-02-16 20:47 | US ---
EXAMINATION TYPE: US gallbladder DATE OF EXAM: 02/16/2020 COMPARISON: CLINICAL HISTORY: pancreatitis. RUQ pain. abn labs. EXAM MEASUREMENTS: Liver Length: 10.1 cm Gallbladder Wall: 0.2 cm CBD: 0.6 cm Right Kidney: 6.7 x 3.0 x 3.6 cm Limited due to overlying bowel gas Pancreas: Echogenic and heterogenous. Tail obscured by overlying bowel gas Liver: Scanned through ribs due to bowel gas. Appears small in size. Gallbladder: Multiple mobile foci Evidence for sonographic Sarmiento's sign: neg CBD: wnl Right Kidney: Appears small in size. Echogenic. Multiple cystic lesions seen with largest measured ; lower = 1.2 x 0.8 x 1.1 cm and upper= 1.2 x 1.1 x 1.2 cm. IMPRESSION: Multiple gallstones. No dilated ducts. Small right renal cortical cysts. No free fluid.
[2020-02-16 20:53] LABS: Appearance,Urine Clear (Clear); Bacteria,Urine Occasional /hpf; Bilirubin,Urine Negative (Negative); Blood,Urine Negative (Negative); Color,Urine Light Yellow; Glucose,Urine (UA) 1+ (Negative); Ketones,Urine Negative (Negative); Leukocyte Esterase,Urine Negative (Negative); Mucus,Urine Rare /hpf; Nitrite,Urine Negative (Negative); Protein,Urine 2+ (Negative); RBC,Urine 1 /hpf (0-5); Squamous Epithelial Cell,Urine <1 /hpf (0-4); Urobilinogen,Urine <2.0 mg/dL (<2.0); WBC,Urine 1 /hpf (0-5)
[2020-02-16] MEDS ORDERED: MORPHINE SULFATE 2 MG/ML SYRINGE IV PRN (22:03)
[2020-02-16] MEDS ORDERED: ONDANSETRON 4 MG/2 ML VIAL IVP PRN (22:03)
[2020-02-16] MEDS ORDERED: ACETAMINOPHEN TAB 325 MG TAB PO PRN (22:03)
[2020-02-16] MEDS ORDERED: NALOXONE 0.4 MG/ML 1 ML VIAL IV PRN (22:03)
[2020-02-16] MEDS ORDERED: SODIUM CHLORIDE 0.9% 1,000 ML IV SCH (22:15)
[2020-02-16 23:37] LABS: Glucose,Whole Blood 132 mg/dL (75-99)
--- NOTE | 2020-02-16 23:51 | P.HPIM ---
History of Present Illness H&P Date: 02/16/20 Chief Complaint: abd pain 89-year-old female with diabetes mellitus, hypertension, CKD Patient comes in due to sudden onset abdominal pain. Patient seems to have some language barrier or very hard of hearing she is very poor historian. I asked the one question and she would either not answer or just gives me an unrelated answer. I reviewed medical records and discussed the patient condition with the ER doctor who was able to talk to her son who was available earlier Seems like patient was watching TV when suddenly started experiencing abdominal pain she described as severe however currently she keeps telling me that pain is gone and that she's feeling fine she wants to go home. And she wouldn't add anything to the history In the ED workup showed elevated lipase suspicious for pancreatitis abdominal CAT scan and ultrasound of the liver showed multiple gallstones in the gallbladder, computed tomography scan showed lipoma the ascending and transverse colon with possible focal colitis Review of Systems Unable to obtain proper review of systems due to patient hard of hearing or language barrier she just refuses to answer questions properly Past Medical History Past Medical History: Diabetes Mellitus, Hypertension, Renal Disease History of Any Multi-Drug Resistant Organisms: None Reported Past Surgical History: Hysterectomy Past Anesthesia/Blood Transfusion Reactions: No Reported Reaction Smoking Status: Never smoker Past Alcohol Use History: None Reported Past Drug Use History: None Reported - Past Family History family Family Medical History: No Reported History Medications and Allergies Home Medications Medication Instructions Recorded Confirmed Type Atenolol [Tenormin] 50 mg PO DAILY 02/01/20 02/16/20 History Atorvastatin [Lipitor] 80 mg PO HS 02/01/20 02/16/20 History Calcitriol [Rocaltrol] 0.25 mcg PO DAILY 02/01/20 02/16/20 History Candesartan Cilexetil 8 mg PO BID 02/01/20 02/16/20 History Levothyroxine Sodium [Euthyrox] 75 mcg PO DAILY 02/01/20 02/16/20 History Omeprazole 20 mg PO DAILY 02/01/20 02/16/20 History amLODIPine [Norvasc] 5 mg PO DAILY 02/01/20 02/16/20 History glipiZIDE [Glucotrol] 5 mg PO AC-[id number] 02/01/20 02/16/20 History Cyanocobalamin [Vitamin B-12] 500 mcg PO DAILY 02/02/20 02/16/20 History Docusate [Colace] 100 mg PO DAILY PRN 02/02/20 02/16/20 History hydrALAZINE HCL [Apresoline] 25 mg PO TID #90 tab 02/03/20 02/16/20 Rx Allergies Allergy/AdvReac Type Severity Reaction Status Date / Time No Known Allergies Allergy Verified 02/16/20 20:21 Physical Exam Vitals: Vital Signs Temp Pulse Resp BP Pulse Ox 02/16/20 22:06 97.5 F L 02/16/20 21:38 56 L 18 180/84 96 02/16/20 19:27 82 192/87 02/16/20 17:08 97.4 F L 61 16 185/87 97 Intake and Output 02/16/20 02/16/20 02/17/20 14:59 22:59 06:59 Other: Weight 47.627 kg Constitutional: No acute distress, well-nourished, pleasant Eyes: Anicteric sclerae, moist conjunctiva, Pupils equal round reactive to light ENMT: NC/AT Oropharynx clear, no erythema, no exudates Neck: Supple, FROM, no masses, or JVD No carotid bruits No thyromegaly Lungs: Clear to auscultation Clear to percussion Normal respiratory effort, no accessory muscle use Cardiovascular: Heart regular in rate and rhythm, No murmurs, gallops, or rubs No peripheral edema Abdominal: Soft Nontender, no guarding, rebound or rigidity Abdomen moving with respiration Normoactive bowel sounds No hepatomegaly, No splenomegaly No palpable mass No abdominal wall hernia noted Skin: Normal temperature, tone, texture, turgor No induration No subcutaneous nodules No rash, lesions No ulcers Extremities: No digital cyanosis No clubbing Pedal pulses intact and symmetrical Radial pulses intact and symmetrical No calf tenderness Psychiatric: Alert and oriented to person, place Appropriate affect fair judgement Neuro Muscles Strength 4/5 in all 4 extremities Sensation to light touch grossly present throughout Cranial nerves II-XII grossly intact No focal sensory deficits Lymphatics: no palpable cervical or supraclavicular , or inguinal lymph nodes Results CBC & Chem 7: 02/16/20 17:33 02/16/20 17:33 Labs: Abnormal Lab Results - Last 24 Hours (Table) 1102/16/20 02/16/20 Range/Units 17:33 17:33 17:33 Plt Count 145 L (150-450) k/uL Sodium 135 L (137-145) mmol/L Chloride 109 H (98-107) mmol/L Carbon Dioxide 20 L (22-30) mmol/L BUN 50 H (7-17) mg/dL Creatinine 3.07 H (0.52-1.04) mg/dL Glucose 185 H (74-99) mg/dL POC Glucose (mg/dL) (75-99) mg/dL AST 44 H (14-36) U/L Total Protein 6.2 L (6.3-8.2) g/dL Lipase 3921 H (23-300) U/L Urine Protein 2+ H (Negative) Urine Glucose (UA) 1+ H (Negative) Urine Bacteria Occasional H (None) /hpf Urine Mucus Rare H (None) /hpf 02/16/20 Range/Units 23:36 Plt Count (150-450) k/uL Sodium (137-145) mmol/L Chloride (98-107) mmol/L Carbon Dioxide (22-30) mmol/L BUN (7-17) mg/dL Creatinine (0.52-1.04) mg/dL Glucose (74-99) mg/dL POC Glucose (mg/dL) 132 H (75-99) mg/dL AST (14-36) U/L Total Protein (6.3-8.2) g/dL Lipase (23-300) U/L Urine Protein (Negative) Urine Glucose (UA) (Negative) Urine Bacteria (None) /hpf Urine Mucus (None) /hpf Assessment and Plan Assessment: Acute abdominal pain possibly secondary to underlying pancreatitis second to gallstones Nothing by mouth IV fluid hydration Pain control with opiates GI consultation Imaging of the abdomen suggested multiple gallstones and mild lipoma of the ascending and transverse colon, focal colitis Hypertensive urgency, uncontrolled Resume home medications Clonidine when necessary for systolic blood pressure above 180 Close monitoring of vital signs CK D stage IV Monitor renal function Monitor urine output Avoid nephrotoxic meds Diabetes mellitus insulin sliding scale hyperlipidemia resume Lipitor Hypothyroidism Synthroid CODE STATUS:full code DVT prophylaxis: heparin sc tid Discussed with: Patient, ER, RN Anticipated length of stay > than [address]: home A total of 75 minutes was spent on the care of this complex patient more than 50% of the time was spent in counseling and care coordination.
[2020-02-17] MEDS ORDERED: cloNIDine HCL 0.2 MG TAB PO PRN
[2020-02-17] MEDS ORDERED: MORPHINE SULFATE 2 MG/ML SYRINGE IV PRN
[2020-02-17] MEDS: LACTATED RINGERS 1,000 ML IV SCH ×3 (01:44→20:30)
[2020-02-17] MEDS: LOSARTAN 50 MG TAB PO SCH ×3 (01:44→20:33)
[2020-02-17] MEDS: hydrALAZINE HCL 25 MG TAB PO SCH ×4 (01:44→20:33)
[2020-02-17] MEDS: HEPARIN SODIUM,PORCINE 5,000 UNIT/ML 1 ML VIAL SQ SCH ×3 (01:44→18:18)
[2020-02-17 06:35] LABS: Albumin 3.5 g/dL (3.5-5.0); Calcium 9.2 mg/dL (8.4-10.2); Potassium 4.6 mmol/L (3.5-5.1); Total Bilirubin 0.5 mg/dL (0.2-1.3); Total Protein 6.3 g/dL (6.3-8.2)
[2020-02-17] MEDS ORDERED: DOCUSATE 100 MG CAP PO PRN (09:00)
[2020-02-17] MEDS: LEVOTHYROXINE 75 MCG TAB PO SCH (09:25)
[2020-02-17] MEDS: PANTOPRAZOLE 40 MG TABLET PO SCH (09:25)
[2020-02-17] MEDS: atenoloL 50 MG TAB PO SCH (09:25)
[2020-02-17] MEDS: amLODIPine 5 MG TAB PO SCH (09:25)
[2020-02-17] MEDS ORDERED: SODIUM CHLORIDE 0.9% 1,000 ML IV SCH (09:45)
--- NOTE | 2020-02-17 12:08 | CONS ---
CONSULTATION DATE OF DICTATION: February 17, 2020. REQUESTING PHYSICIAN: Dr. Vargas REASON FOR CONSULTATION: Acute pancreatitis. HISTORY OF PRESENT ILLNESS: The patient is an 89-year-old [place] lady with history of diabetes mellitus, hypertension, was admitted to the hospital with acute pancreatitis. The patient is a very poor historian and because of the language barrier, I cannot communicate with her. As per the nursing staff, apparently she did experience some abdominal pain and had some nausea, vomiting, and she was brought into the emergency room and was noted to have elevated lipase consistent with acute pancreatitis. She also had CT of the abdomen done that showed multiple gallstones and questionable focal colitis involving the transverse colon and descending colon. As per the nursing staff, this morning she has not been complaining of any abdominal pain. She had no nausea, vomiting. No fever, chills, night sweats. PAST MEDICAL HISTORY: Diabetes mellitus, hypertension, chronic kidney disease. PAST SURGICAL HISTORY: Hysterectomy. MEDICATIONS: Medications at home include Tenormin, Lipitor, calcitriol, candesartan, levothyroxine, omeprazole, Norvasc, Glucotrol, vitamin B12, Colace, and Apresoline. ALLERGIES: None. SOCIAL HISTORY: No smoking. No alcohol use. FAMILY HISTORY: Unremarkable. REVIEW OF SYSTEMS: Could not be obtained as patient is unable to communicate with her. PHYSICAL EXAMINATION: She appears comfortable. No apparent distress. Vital signs stable. Blood pressure is 186/81, pulse 59. Temperature 97.4. HEENT examination unremarkable. Conjunctivae pink. Sclerae anicteric. Oral cavity no lesions. NECK no JVD or lymph node enlargement. CHEST was clear to auscultation. HEART: Regular rate and rhythm. ABDOMEN: Soft. Bowel sounds are positive. Minimal tenderness in the epigastric area. EXTREMITIES: No pedal edema. SKIN: No rashes. NEURO: She is alert and oriented x3. LABS: WBC hemoglobin 11.8, platelets normal. Basic metabolic panel, BUN 50, creatinine 3.07. Today, BUN is 46, creatinine 2.6 AST and ALT, T-bilirubin and alkaline phosphatase are all within normal limits. Lipase was 3021. Repeat lipase from today are still pending. CT of the abdomen done in the emergency room yesterday did show evidence of multiple gallstones. Gallbladder was large. No signs of pancreatic mass. Mild thickening of the stomach wall, colonic diverticulosis and thickening of the rectum. IMPRESSION: This is a lady who presented to the hospital with acute onset of epigastric pain associated with nausea, vomiting and noted to have elevated lipase consistent with acute pancreatitis. At the time of admission to the hospital she had very minimal elevation of ALT, but today her LFTs have completely normalized. Ultrasound and CT scan did show evidence of multiple gallstones and this could be consistent with acute gallstone pancreatitis. The patient is gradually improving. RECOMMENDATIONS: 1. Repeat labs. 2. Start her on a clear liquid diet. 3. Obtain surgical consultation. 4. Monitor lipase closely. 5. We will follow with you. Thank you for this consultation. MMODL / IJN: [id number] /
--- NOTE | 2020-02-17 13:43 | P.GSCN ---
History of Present Illness Consult date: 02/17/20 History of present illness: 89-year-old female presented to the emergency department with complaints of abdominal pain. The patient does speak [place] is her primary language and there is a language barrier in questioning. I did attempt to call the patient's son, Mikey, to obtain more information, however I was unable to get a hold of him. It appears that the patient did have significant abdominal pain that brought her to the emergency department. The workup was performed that was concerning for a pancreatitis episode, likely secondary to gallstones. Accord ing to nursing, the patient has not had any significant complaints this morning. Her laboratory values have improved. She is afebrile. She has not had any emesis episodes. It is unclear whether the patient has had any previous biliary or pancreatitis episodes. Review of Systems Unable to perform due to language barrier Past Medical History Past Medical History: Diabetes Mellitus, Hypertension, Renal Disease Additional Past Medical History / Comment(s): Pt was supposed to have eye surgery a year or two ago and was cancelled due to hypertension. Pt was supposed to meet with a shrink pit supervisor 02/21/20. History of Any Multi-Drug Resistant Organisms: None Reported Past Surgical History: Hysterectomy Additional Past Surgical History / Comment(s): pt states to son that she has had 2-3 surgeries but dose not remember Past Anesthesia/Blood Transfusion Reactions: No Reported Reaction Smoking Status: Never smoker Past Alcohol Use History: None Reported Past Drug Use History: None Reported - Past Family History family Family Medical History: No Reported History Medications and Allergies Home Medications Medication Instructions Recorded Confirmed Type Atenolol [Tenormin] 50 mg PO DAILY 02/01/20 02/16/20 History Atorvastatin [Lipitor] 80 mg PO HS 02/01/20 02/16/20 History Calcitriol [Rocaltrol] 0.25 mcg PO DAILY 02/01/20 02/16/20 History Candesartan Cilexetil 8 mg PO BID 02/01/20 02/16/20 History Levothyroxine Sodium [Euthyrox] 75 mcg PO DAILY 02/01/20 02/16/20 History Omeprazole 20 mg PO DAILY 02/01/20 02/16/20 History amLODIPine [Norvasc] 5 mg PO DAILY 02/01/20 02/16/20 History [facility] 02/01/20 02/16/20 History Cyanocobalamin [Vitamin B-12] 500 mcg PO DAILY 02/02/20 02/16/20 History Docusate [Colace] 100 mg PO DAILY PRN 02/02/20 02/16/20 History hydrALAZINE HCL [Apresoline] 25 mg PO TID #90 tab 02/03/20 02/16/20 Rx Allergies Allergy/AdvReac Type Severity Reaction Status Date / Time No Known Allergies Allergy Verified 02/16/20 20:21 Surgical - Exam Osteopathic Statement: *. No significant issues noted on an osteopathic structural exam other than those noted in the History and Physical/Consult. Vital Signs Temp Pulse Resp BP Pulse Ox 97.4 F L 61 16 185/87 97 02/16/20 17:08 02/16/20 17:08 02/16/20 17:08 02/16/20 17:08 02/16/20 17:08 - General well developed, well nourished, no distress - Eyes normal ocular movement - Neck no masses, trachea midline - Respiratory normal respiratory effort - Abdomen Soft, nontender, nondistended, no rebound, no guarding - Integumentary no rash, no growths Results - Labs 02/16/20 17:33 02/17/20 05:51 Abnormal Lab Results - Last 24 Hours (Table) 02/16/20 02/16/20 02/16/20 Range/Units 17:33 17:33 17:33 Plt Count 145 L (150-450) k/uL Sodium 135 L (137-145) mmol/L Chloride 109 H (98-107) mmol/L Carbon Dioxide 20 L (22-30) mmol/L BUN 50 H (7-17) mg/dL Creatinine 3.07 H (0.52-1.04) mg/dL Glucose 185 H (74-99) mg/dL POC Glucose (mg/dL) (75-99) mg/dL AST 44 H (14-36) U/L Total Protein 6.2 L (6.3-8.2) g/dL Lipase 3921 H (23-300) U/L Urine Protein 2+ H (Negative) Urine Glucose (UA) 1+ H (Negative) Urine Bacteria Occasional H (None) /hpf Urine Mucus Rare H (None) /hpf 11/13/20 11/14/20 Range/Units 23:36 05:51 Plt Count (150-450) k/uL Sodium (137-145) mmol/L Chloride 110 H (98-107) mmol/L Carbon Dioxide 20 L (22-30) mmol/L BUN 46 H (7-17) mg/dL Creatinine 2.89 H (0.52-1.04) mg/dL Glucose (74-99) mg/dL POC Glucose (mg/dL) 132 H (75-99) mg/dL AST (14-36) U/L Total Protein (6.3-8.2) g/dL Lipase (23-300) U/L Urine Protein (Negative) Urine Glucose (UA) (Negative) Urine Bacteria (None) /hpf Urine Mucus (None) /hpf Diabetes panel 02/16/20 02/17/20 Range/Units 17:33 05:51 Sodium 135 L 138 (137-145) mmol/L Potassium 5.0 4.6 (3.5-5.1) mmol/L Chloride 109 H 110 H (98-107) mmol/L Carbon Dioxide 20 L 20 L (22-30) mmol/L BUN 50 H 46 H (7-17) mg/dL Creatinine 3.07 H 2.89 H (0.52-1.04) mg/dL Glucose 185 H 91 (74-99) mg/dL Calcium 8.8 9.2 (8.4-10.2) mg/dL AST 44 H 30 (14-36) U/L ALT 34 31 (4-34) U/L Alkaline Phosphatase 53 56 (38-126) U/L Total Protein 6.2 L 6.3 (6.3-8.2) g/dL Albumin 3.5 3.5 (3.5-5.0) g/dL Calcium panel 02/16/20 02/17/20 Range/Units 17:33 05:51 Calcium 8.8 9.2 (8.4-10.2) mg/dL Albumin 3.5 3.5 (3.5-5.0) g/dL Pituitary panel 02/16/20 02/17/20 Range/Units 17:33 05:51 Sodium 135 L 138 (137-145) mmol/L Potassium 5.0 4.6 (3.5-5.1) mmol/L Chloride 109 H 110 H (98-107) mmol/L Carbon Dioxide 20 L 20 L (22-30) mmol/L BUN 50 H 46 H (7-17) mg/dL Creatinine 3.07 H 2.89 H (0.52-1.04) mg/dL Glucose 185 H 91 (74-99) mg/dL Calcium 8.8 9.2 (8.4-10.2) mg/dL Adrenal panel 02/16/20 02/17/20 Range/Units 17:33 05:51 Sodium 135 L 138 (137-145) mmol/L Potassium 5.0 4.6 (3.5-5.1) mmol/L Chloride 109 H 110 H (98-107) mmol/L Carbon Dioxide 20 L 20 L (22-30) mmol/L BUN 50 H 46 H (7-17) mg/dL Creatinine 3.07 H 2.89 H (0.52-1.04) mg/dL Glucose 185 H 91 (74-99) mg/dL Calcium 8.8 9.2 (8.4-10.2) mg/dL Total Bilirubin 0.6 0.5 (0.2-1.3) mg/dL AST 44 H 30 (14-36) U/L ALT 34 31 (4-34) U/L Alkaline Phosphatase 53 56 (38-126) U/L Total Protein 6.2 L 6.3 (6.3-8.2) g/dL Albumin 3.5 3.5 (3.5-5.0) g/dL Assessment and Plan Plan: 81-year-old female with pancreatitis, likely secondary to gallstones. Patient appears to be improving from a clinical standpoint. I did attempt to reach the patient's son to obtain more medical history and to discuss the patient's case as there is a language barrier. Patient will likely benefit from surgical intervention with a cholecystectomy to decrease chances of recurrence of gallstone pancreatitis. However, it is unclear whether she is interested in surgical intervention. We will attempt to reach the patient's son once again to discuss the case.
--- NOTE | 2020-02-17 16:49 | P.PN ---
Subjective Progress Note Date: 02/17/20 Patient appeared comfortable when I saw her. She denies any pain. No nausea or vomiting. Objective - Vital Signs Vital signs: Vital Signs Temp 97.9 F 02/17/20 14:48 Pulse 56 L 02/17/20 14:48 Resp 16 02/17/20 14:48 BP 152/73 02/17/20 14:48 Pulse Ox 96 02/17/20 14:48 Intake & Output 02/16/20 02/17/20 02/17/20 18:59 06:59 18:59 Intake Total 545 Balance 545 Weight 47.627 kg 47.627 kg Intake: Intake, IV Titration 520 Amount Lactated Ringers 1,000 ml 400 @ 100 mls/hr IV .Q10H ZANDRA Rx#:[id number] Sodium Chloride 0.9% 1, 120 000 ml @ 60 mls/hr IV . [id number] ZANDRA Rx#:[id number] Oral 25 Other: # Voids 2 1 - Exam General: The patient is awake and alert, in no distress Eye: there is normal conjunctiva bilaterally. Neck: The neck is supple, there is no JVD. Cardiovascular: Normal S1-S2, no S3-S4, no murmurs. Respiratory: Lungs clear to auscultation bilaterally Gastrointestinal: Abdomen is soft, nontender Musculoskeletal: There is no pedal edema. Neurological:. Speech is normal. Skin: Skin is warm and dry - Labs CBC & Chem 7: 02/16/20 17:33 02/17/20 05:51 Labs: Abnormal Lab Results - Last 24 Hours (Table) 02/16/20 02/16/20 02/16/20 Range/Units 17:33 17:33 17:33 Plt Count 145 L (150-450) k/uL Sodium 135 L (137-145) mmol/L Chloride 109 H (98-107) mmol/L Carbon Dioxide 20 L (22-30) mmol/L BUN 50 H (7-17) mg/dL Creatinine 3.07 H (0.52-1.04) mg/dL Glucose 185 H (74-99) mg/dL POC Glucose (mg/dL) (75-99) mg/dL AST 44 H (14-36) U/L Total Protein 6.2 L (6.3-8.2) g/dL Lipase 3921 H (23-300) U/L Urine Protein 2+ H (Negative) Urine Glucose (UA) 1+ H (Negative) Urine Bacteria Occasional H (None) /hpf Urine Mucus Rare H (None) /hpf 02/16/20 02/17/20 Range/Units 23:36 05:51 Plt Count (150-450) k/uL Sodium (137-145) mmol/L Chloride 110 H (98-107) mmol/L Carbon Dioxide 20 L (22-30) mmol/L BUN 46 H (7-17) mg/dL Creatinine 2.89 H (0.52-1.04) mg/dL Glucose (74-99) mg/dL POC Glucose (mg/dL) 132 H (75-99) mg/dL AST (14-36) U/L Total Protein (6.3-8.2) g/dL Lipase (23-300) U/L Urine Protein (Negative) Urine Glucose (UA) (Negative) Urine Bacteria (None) /hpf Urine Mucus (None) /hpf Assessment and Plan Assessment: Acute abdominal pain possibly secondary to underlying pancreatitis secondary to gallstones Nothing by mouth IV fluid hydration Pain control with opiates GI and general surgery consultation Imaging of the abdomen suggested multiple gallstones and mild lipoma of the ascending and transverse colon, focal colitis Patient may benefit from cholecystectomy Hypertensive urgency, uncontrolled Resume home medications, blood pressure improving Clonidine when necessary for systolic blood pressure above 180 Close monitoring of vital signs CK D stage IV Monitor renal function Monitor urine output Avoid nephrotoxic meds Diabetes mellitus insulin sliding scale hyperlipidemia resume Lipitor Hypothyroidism Synthroid
[2020-02-17] MEDS: ATORVASTATIN 80 MG TAB PO SCH (20:33)
[2020-02-18] MEDS: HEPARIN SODIUM,PORCINE 5,000 UNIT/ML 1 ML VIAL SQ SCH ×3 (01:02→15:54)
[2020-02-18] MEDS: LEVOTHYROXINE 75 MCG TAB PO SCH (05:51)
[2020-02-18] MEDS: LACTATED RINGERS 1,000 ML IV SCH ×2 (05:52→12:46)
[2020-02-18 05:56] VITALS: RESP 16
--- NOTE | 2020-02-18 10:06 | P.PN ---
Subjective Progress Note Date: 02/18/20 Patient seen and examined at bedside. No acute events. Denies abdominal pain. Objective - Vital Signs Vital signs: Vital Signs Temp 97.9 F 02/18/20 04:40 Pulse 58 L 02/18/20 04:40 Resp 16 02/18/20 04:40 BP 162/76 02/18/20 04:40 Pulse Ox 94 L 02/18/20 04:40 Intake & Output 02/17/20 02/18/20 02/18/20 18:59 06:59 18:59 Intake Total 2550 Balance 2550 Intake: Intake, IV Titration 1500 Amount Lactated Ringers 1,000 ml 1500 @ 100 mls/hr IV .Q10H ZANDRA Rx#:[id number] Oral 1050 Other: # Voids 1 3 # Bowel Movements 1 - Constitutional General appearance: Present: cooperative, no acute distress - Gastrointestinal Gastrointestinal Comment(s): Soft, nontender, nondistended, no rebound, no guarding - Labs CBC & Chem 7: 02/16/20 17:33 02/17/20 05:51 Assessment and Plan Plan: 89-year-old female with gallstone pancreatitis. Her abdominal pain is improving. There is a language barrier with the patient and I did discuss the case in depth with the patient's son, Mikey. He does state that he is her medical decision maker. He is understanding of her current medical situation with gallstone pancreatitis and recommendation for cholecystectomy. He understands that the patient, his mother, is noted to the 89 and does have medical comorbidities that make her a higher risk candidate for surgery than the average patient. He states that he would like to move forward with surgical intervention. He was explained the risks, benefits and alternatives to the procedure. He states that he will be providing consent.
--- NOTE | 2020-02-18 11:03 | PN ---
PROGRESS NOTE DATE OF DICTATION: February 18, 2020 Patient is an 89-year-old pleasant white female admitted to hospital with acute pancreatitis. She presented with abdominal pain. She is doing much better. She is on a clear liquid diet, tolerating well. She denies any nausea or vomiting. PHYSICAL EXAMINATION: Appears comfortable. VITAL SIGNS: Stable. Blood pressure 162/76, pulse rate 58, temperature 97.7. HEENT examination unremarkable. Conjunctivae pink. Sclerae anicteric. Oral cavity no lesions. NECK no JVD or lymph node enlargement. CHEST was clear to auscultation. HEART: Regular rate and rhythm. ABDOMEN: Soft, it was nontender, nondistended. Bowel sounds are positive. No organomegaly. EXTREMITIES: No pedal edema. NEUROLOGIC: Alert and oriented x3. No focal deficits. LABS: From today: CBC is not done. BUN at 46, creatinine 2.89. Repeat lipase is pending. ALT, AST, T-bilirubin and alkaline phosphatase are normal. IMPRESSION: 1. Acute gallstone pancreatitis, improving. Abdominal pain has improved. Patient clinically doing well. On clear liquid diet, tolerating well. Repeat labs are still pending from today. 2. History of hypertension. 3. History of hypercholesteremia. RECOMMENDATIONS: 1. Continue with a clear liquid diet today. 2. Await labs from today. 3. Appreciate surgical consultation. 4. We will follow with you closely. Thank you for this consultation. MMFADIL / TEODORO: [id number] /
[2020-02-18 11:33] LABS: Glucose,Whole Blood 184 mg/dL (75-99)
[2020-02-18] MEDS: LOSARTAN 50 MG TAB PO SCH ×2 (11:35→22:04)
[2020-02-18] MEDS: amLODIPine 5 MG TAB PO SCH ×2 (11:35→22:04)
[2020-02-18] MEDS: PANTOPRAZOLE 40 MG TABLET PO SCH (11:35)
[2020-02-18] MEDS: hydrALAZINE HCL 25 MG TAB PO SCH ×3 (11:35→22:04)
[2020-02-18 11:54] LABS: Basophils % (A) 0 %; Eosinophils # (A) 0.2 k/uL (0-0.7); Eosinophils % (A) 3 %; HCT 32.5 % (34.0-46.0); HGB 10.4 gm/dL (11.4-16.0); Lymphocytes # (A) 1.1 k/uL (1.0-4.8); Lymphocytes % (A) 21 %; MCHC 31.9 g/dL (31.0-37.0); MCV 94.1 fL (80.0-100.0); Monocytes # (A) 0.4 k/uL (0-1.0); Monocytes % (A) 7 %; Neutrophils # (A) 3.6 k/uL (1.3-7.7); Neutrophils % (A) 67 %; Platelet Count 133 k/uL (150-450); RBC 3.46 m/uL (3.80-5.40); RDW 14.8 % (11.5-15.5); WBC 5.3 k/uL (3.8-10.6)
--- NOTE | 2020-02-18 11:55 | P.PN ---
Progress Note - Text Progress Note Date: 02/18/20 Patient was initially scheduled for laparoscopic cholecystectomy after discussion with the patient's son. I was informed by the nurse that the patient's son did call back and is withdrawing consent. He stated that he would like to know what the full cost of the surgery would be and would like to think about cost of the surgery prior to making any decision. He was instructed to all and discuss this with his mother's insurance company. At this point, secondary to this issue, the procedure will be canceled. I did discuss this with the medical admitting team.
[2020-02-18] MEDS: atenoloL 50 MG TAB PO SCH (12:08)
--- NOTE | 2020-02-18 16:32 | P.PN ---
Subjective Patient appeared comfortable when I saw her. She denies any pain. No nausea or vomiting. Objective - Vital Signs Vital signs: Vital Signs Temp 97.6 F 02/18/20 11:32 Pulse 59 L 02/18/20 11:32 Resp 16 02/18/20 11:32 BP 194/80 02/18/20 11:32 Pulse Ox 98 02/18/20 11:32 Intake & Output 02/17/20 02/18/20 02/18/20 18:59 06:59 18:59 Intake Total 2550 Balance 2550 Intake: Intake, IV Titration 1500 Amount Lactated Ringers 1,000 ml 1500 @ 100 mls/hr IV .Q10H ZANDRA Rx#:[id number] Oral 1050 Other: # Voids 1 3 3 # Bowel Movements 1 - Exam General: The patient is awake and alert, in no distress Eye: there is normal conjunctiva bilaterally. Neck: The neck is supple, there is no JVD. Cardiovascular: Normal S1-S2, no S3-S4, no murmurs. Respiratory: Lungs clear to auscultation bilaterally Gastrointestinal: Abdomen is soft, nontender Musculoskeletal: There is no pedal edema. Neurological:. Speech is normal. Skin: Skin is warm and dry - Labs CBC & Chem 7: 02/18/20 11:20 02/17/20 05:51 Labs: Abnormal Lab Results - Last 24 Hours (Table) 02/18/20 02/18/20 Range/Units 11:20 11:32 RBC 3.46 L (3.80-5.40) m/uL Hgb 10.4 L (11.4-16.0) gm/dL Hct 32.5 L (34.0-46.0) % Plt Count 133 L (150-450) k/uL POC Glucose (mg/dL) 184 H (75-99) mg/dL Assessment and Plan Assessment: Acute abdominal pain secondary to underlying pancreatitis secondary to gallstones Start liquid diet and advance as tolerated IV fluid hydration Pain control with opiates GI and general surgery consultation Imaging of the abdomen suggested multiple gallstones and mild lipoma of the ascending and transverse colon, focal colitis Patient may benefit from cholecystectomy, discussed by general surgery with her son that would like to hold off on surgery for financial reasons. Hypertensive urgency, uncontrolled Increased Norvasc dose to 5 mg twice daily Close monitoring of vital signs CK D stage IV Monitor renal function Monitor urine output Avoid nephrotoxic meds Diabetes mellitus insulin sliding scale hyperlipidemia resume Lipitor Hypothyroidism Synthroid
[2020-02-18 18:29] LABS: African American GFR (CKD) 15.4 (60.0-200.0); Albumin 3.4 g/dL (3.80-4.90); Albumin/Globulin Ratio 1.79 (1.60-3.17); Anion Gap 5.7 mmol/L (4.00-12.00); BUN/Creat Ratio 14.67 Ratio (12.00-20.00); Calcium 8.7 mg/dL (8.7-10.3); Carbon Dioxide 22.3 mmol/L (21.6-31.8); Globulin 1.9 g/dL (1.6-3.3); Non-African American GFR(CKD) 13.3 (60.0-200.0); Potassium 4.3 mmol/L (3.5-5.5); Total Bilirubin 0.3 mg/dL (0.3-1.2); Total Protein 5.3 g/dL (6.2-8.2)
[2020-02-18] MEDS: ATORVASTATIN 80 MG TAB PO SCH (22:04)
[2020-02-19] MEDS: HEPARIN SODIUM,PORCINE 5,000 UNIT/ML 1 ML VIAL SQ SCH ×3 (00:52→16:55)
[2020-02-19] MEDS ORDERED: hydrALAZINE HCL 25 MG TAB PO STA (01:00)
[2020-02-19] MEDS: LACTATED RINGERS 1,000 ML IV SCH ×2 (06:21→12:59)
[2020-02-19] MEDS: LEVOTHYROXINE 75 MCG TAB PO SCH (06:21)
--- NOTE | 2020-02-19 08:27 | P.PN ---
Subjective Progress Note Date: 02/19/20 Patient seen and examined at bedside. No acute events. Objective - Vital Signs Vital signs: Vital Signs Temp 98.3 F 02/19/20 04:26 Pulse 60 02/19/20 04:26 Resp 16 02/19/20 04:26 BP 155/55 02/19/20 04:26 Pulse Ox 97 02/19/20 04:26 Intake & Output 02/18/20 02/19/20 02/19/20 18:59 06:59 18:59 Intake Total 10 300 Balance 10 300 Intake: IV 10 Invasive Line 1 10 Intake, IV Titration 300 Amount Lactated Ringers 1,000 ml 300 @ 100 mls/hr IV .Q10H ZANDRA Rx#:[id number] Other: # Voids 2 1 - Constitutional General appearance: Present: cooperative, no acute distress - EENT Eyes: Present: PERRLA - Gastrointestinal Gastrointestinal Comment(s): Soft, nontender, nondistended, no rebound, no guarding - Musculoskeletal Musculoskeletal: Present: generalized weakness - Labs CBC & Chem 7: 02/18/20 11:20 02/18/20 11:20 Labs: Abnormal Lab Results - Last 24 Hours (Table) 02/18/20 02/18/20 02/18/20 Range/Units 11: 11:20 11:32 RBC 3.46 L (3.80-5.40) m/uL Hgb 10.4 L (11.4-16.0) gm/dL Hct 32.5 L (34.0-46.0) % Plt Count 133 L (150-450) k/uL BUN 44.0 H (9.0-27.0) mg/dL Creatinine 3.0 H (0.6-1.5) mg/dL Est GFR (CKD-EPI)AfAm 15.4 L (60.0-200.0) Est GFR (CKD-EPI)NonAf 13.3 L (60.0-200.0) Glucose 199 H (70-110) mg/dL POC Glucose (mg/dL) 184 H (75-99) mg/dL Total Protein 5.3 L (6.2-8.2) g/dL Albumin 3.40 L (3.80-4.90) g/dL Assessment and Plan Plan: Patient was initially scheduled for left scopic cholecystectomy yesterday. However, patient's son was concerned about the financial consequences and on sure of insurance coverage for surgery and did not provide consent. At this point, the patient appears to be clinically improving. I did discuss with the son and he understands the risk of recurrent gallstone pancreatitis. The patient is surgically stable for discharge and can follow-up as an outpatient as this also gives the patient's son time to inquire about insurance coverage.
[2020-02-19] MEDS: amLODIPine 5 MG TAB PO SCH (08:29)
[2020-02-19] MEDS: atenoloL 50 MG TAB PO SCH (08:31)
[2020-02-19] MEDS: LOSARTAN 50 MG TAB PO SCH (08:33)
[2020-02-19] MEDS: hydrALAZINE HCL 25 MG TAB PO SCH ×2 (08:33→16:55)
[2020-02-19] MEDS: PANTOPRAZOLE 40 MG TABLET PO SCH (08:34)
[2020-02-19 12:01] VITALS: BP 135/70; PULSE 56; TEMP 97.6
--- NOTE | 2020-02-19 15:15 | P.DS ---
Providers Date of admission: 02/16/20 22:03 Expected date of discharge: 02/19/20 Attending physician: Sam Abdul MD Consults: 02/16/20 22:03 Consult Physician Routine Consulting Provider: Reno Huang Consult Reason/Comments: gallstone pancreatitis Do you want consulting provider notified?: Yes 02/16/20 22:04 Consult Physician Routine Consulting Provider: Mima Warren Consult Reason/Comments: gallstone pancreatitis Do you want consulting provider notified?: Yes Primary care physician: Stated None Hospital Course: This is a 89-year-old Tuvaluan speaking female who presented to the emergency room with worsening abdominal pain. Patient was evaluated in the ER and admitted to the hospital for further management of her medical problems noted below. Acute abdominal pain secondary to underlying pancreatitis secondary to gallstones Imaging of the abdomen suggested multiple gallstones and mild lipoma of the ascending and transverse colon, focal colitis Patient was treated aggressively with IV fluid hydration and pain medications. Her overall condition improved. She was seen and evaluated by general surgery and GI. She was scheduled for cholecystectomy but her son initially refused with financial concerns. Patient will be following up with general surgery in the office to schedule elective cholecystectomy Overall condition improved significantly and patient was able to tolerate regular diet with no difficulty on the day of discharge Hypertensive urgency, with underlying essential hypertension uncontrolled Increased Norvasc dose to 5 mg twice daily Blood pressure improved significantly CK D stage IV Creatinine stable Diabetes mellitus hyperlipidemia resume Lipitor Hypothyroidism Synthroid Patient will be discharged home in a stable condition. For further details about this hospitalization please refer to the electronic chart. Time spent on discharge > 30 minutes including counseling and coordination of care Patient Condition at Discharge: Fair Plan - Discharge Summary Discharge Rx Participant: No New Discharge Prescriptions: New amLODIPine [Norvasc] 5 mg PO BID #60 tab Continue glipiZIDE [Glucotrol] 5 mg PO AC-BRKFST amLODIPine [Norvasc] 5 mg PO DAILY Omeprazole 20 mg PO DAILY Levothyroxine Sodium [Euthyrox] 75 mcg PO DAILY Candesartan Cilexetil 8 mg PO BID Calcitriol [Rocaltrol] 0.25 mcg PO DAILY Atorvastatin [Lipitor] 80 mg PO HS Atenolol [Tenormin] 50 mg PO DAILY Docusate [Colace] 100 mg PO DAILY PRN PRN Reason: Constipation Cyanocobalamin [Vitamin B-12] 500 mcg PO DAILY hydrALAZINE HCL [Apresoline] 25 mg PO TID #90 tab Discharge Medication List Atenolol [Tenormin] 50 mg PO DAILY 02/01/20 [History] Atorvastatin [Lipitor] 80 mg PO HS 02/01/20 [History] Calcitriol [Rocaltrol] 0.25 mcg PO DAILY 02/01/20 [History] Candesartan Cilexetil 8 mg PO BID 02/01/20 [History] Levothyroxine Sodium [Euthyrox] 75 mcg PO DAILY 02/01/20 [History] Omeprazole 20 mg PO DAILY 02/01/20 [History] amLODIPine [Norvasc] 5 mg PO DAILY 02/01/20 [History] glipiZIDE [Glucotrol] 5 mg PO AC-BRKFST 02/01/20 [History] Cyanocobalamin [Vitamin B-12] 500 mcg PO DAILY 02/02/20 [History] Docusate [Colace] 100 mg PO DAILY PRN 02/02/20 [History] hydrALAZINE HCL [Apresoline] 25 mg PO TID #90 tab 02/03/20 [Rx] amLODIPine [Norvasc] 5 mg PO BID #60 tab 02/19/20 [Rx] Follow up Appointment(s)/Referral(s): Tank Pederson MD [STAFF PHYSICIAN] - 1-2 Days [facility], [NON-STAFF] - 1-2 Days Reno Huang DO [Doctor of Osteopathic Medicine] - 1 Week Discharge Disposition: HOME SELF-CARE
--- NOTE | 2020-02-19 16:49 | PN ---
PROGRESS NOTE DATE OF SERVICE: 02/19/2020 Patient is an 89-year-old pleasant female admitted to hospital with acute pancreatitis and gallstones. She is doing better. She was seen by Dr. Huang and was scheduled for laparoscopic cholecystectomy today, but because of the concerns about finances, the surgery was canceled. Patient is feeling better and apparently wants to go home today. PHYSICAL EXAMINATION: Appears comfortable, blood pressure 135/70, pulse rate 56, temperature 97. HEENT: Examination unremarkable, conjunctivae are pink, sclerae nonicteric, oral cavity no lesions. NECK: No JVD or lymph node enlargement. CHEST: Clear to auscultation. HEART: Regular rate and rhythm. ABDOMEN: Soft, bowel sounds are positive, no organomegaly. EXTREMITIES: No pedal edema. NEUROLOGIC: Alert and oriented x3. No focal deficits. LABS: No labs available from today yesterday. Yesterday, lipase is down to 45. ALT, AST, T bilirubin and alkaline phosphatase are normal. IMPRESSION: 1. Acute pancreatitis, possibly gallstone related. Symptoms have improved. Pancreatitis resolved. Patient doing well, tolerating diet well. 2. Symptomatic gallstones. RECOMMENDATION: 1. Advance diet as tolerated. 2. Further recommendations as per Surgical Service. 3. Will sign off at this time. Thank you for this consultation. MMODL / IJN: [id number] /
== END 2020-02-19 17:25 | disposition home health service (06) | DRG 439 ==
LOC: EC 16:57 → 5NMEDONC 22:03
PROVIDERS: ADMIT Internal Medicine; ATTEND Internal Medicine
DX: K85.10 Biliary acute pancreatitis without necrosis or infection (principal); N18.4 Chronic kidney disease, stage 4 (severe); E11.22 Type 2 diabetes mellitus with diabetic chronic kidney disease; E03.9 Hypothyroidism, unspecified; E78.00 Pure hypercholesterolemia, unspecified; E78.5 Hyperlipidemia, unspecified; I12.9 Hypertensive chronic kidney disease with stage 1 through stage 4 chronic kidney disease, or unspecified chronic kidney disease; I16.0 Hypertensive urgency; K52.9 Noninfective gastroenteritis and colitis, unspecified; K80.20 Calculus of gallbladder without cholecystitis without obstruction; Z79.84 Long term (current) use of oral hypoglycemic drugs; Z79.890 Hormone replacement therapy; Z79.899 Other long term (current) drug therapy; Z90.710 Acquired absence of both cervix and uterus; Z53.29 Procedure and treatment not carried out because of patient's decision for other reasons
CPT/HCPCS: 36415; 74176; 76705; 80053; 81001; 83690; 85025; 93005; 99285

== ENCOUNTER → 2020-03-14 | Outpatient (CLI) | payer MEDICARE, OTHER | END | disposition home or self-care (01) | LOC: LABWHC1 11:52 | PROVIDERS: ATTEND Surgery | DX: Z20.828 Contact with and (suspected) exposure to other viral communicable diseases (principal) | CPT/HCPCS: U0003; C9803 ==

== ENCOUNTER 2020-04-27 16:40 | Emergency (ER) | payer MEDICARE, OTHER ==
[2020-04-27 16:46] LABS: Glucose,Whole Blood 229 mg/dL (75-99)
--- NOTE | 2020-04-27 17:00 | ED ---
General Adult HPI - General Chief complaint: Altered Mental Status Stated complaint: poss stoke Time Seen by Provider: 04/27/20 16:50 Source: EMS Mode of arrival: EMS Limitations: altered mental status - History of Present Illness Initial comments: Patient presents the ED by EMS for evaluation. Per EMS report, the patient's son reported to them that the patient became unresponsive and was noted to be drooling at about 4 PM today (about 50 minutes ago). Patient was reportedly conversating with the patient's son just prior to becoming unresponsive. Patient's blood glucose was reported to be in the 300s per EMS. Patient is unable to provide any history at this time secondary to altered mental status. No other history is available at this time. - Related Data Home Medications Medication Instructions Recorded Confirmed Atenolol [Tenormin] 50 mg PO DAILY 02/01/20 02/16/20 Atorvastatin [Lipitor] 80 mg PO HS 02/01/20 02/16/20 Calcitriol [Rocaltrol] 0.25 mcg PO DAILY 02/01/20 02/16/20 Candesartan Cilexetil 8 mg PO BID 02/01/20 02/16/20 Levothyroxine Sodium [Euthyrox] 75 mcg PO DAILY 02/01/20 02/16/20 Omeprazole 20 mg PO DAILY 02/01/20 02/16/20 amLODIPine [Norvasc] 5 mg PO DAILY 02/01/20 02/16/20 glipiZIDE [Glucotrol] 5 mg PO AC-BRKFST 02/01/20 02/16/20 Cyanocobalamin [Vitamin B-12] 500 mcg PO DAILY 02/02/20 02/16/20 Docusate [Colace] 100 mg PO DAILY PRN 02/02/20 02/16/20 Previous Rx's Medication Instructions Recorded hydrALAZINE HCL [Apresoline] 25 mg PO TID #90 tab 02/03/20 amLODIPine [Norvasc] 5 mg PO BID #60 tab 02/19/20 Allergies Allergy/AdvReac Type Severity Reaction Status Date / Time No Known Allergies Allergy Verified 02/16/20 20:21 Review of Systems ROS Statement: Those systems with pertinent positive or pertinent negative responses have been documented in the HPI. ROS Other: All systems not noted in ROS Statement are negative. Limitations: ROS unobtainable due to patients medical condition Past Medical History Past Medical History: Diabetes Mellitus, Hypertension, Renal Disease Additional Past Medical History / Comment(s): Pt was supposed to have eye surgery a year or two ago and was cancelled due to hypertension. Pt was supposed to meet with a button sewing machine operator 02/21/20. History of Any Multi-Drug Resistant Organisms: None Reported Past Surgical History: Hysterectomy Additional Past Surgical History / Comment(s): pt states to son that she has had 2-3 surgeries but dose not remember Past Anesthesia/Blood Transfusion Reactions: No Reported Reaction Smoking Status: Never smoker Past Alcohol Use History: None Reported Past Drug Use History: None Reported - Past Family History family Family Medical History: No Reported History General Exam Limitations: no limitations General appearance: other (Patient is alert, but not verbal; patient is not able to follow any commands) Head exam: Present: atraumatic, normocephalic Eye exam: Present: normal appearance, PERRL ENT exam: Present: mucous membranes moist Neck exam: Present: other (Trachea is in midline). Absent: meningismus Respiratory exam: Present: normal lung sounds bilaterally. Absent: respiratory distress, wheezes, rales, rhonchi, stridor Cardiovascular Exam: Present: normal rhythm, bradycardia, normal heart sounds, other (Normal radial pulses bilaterally) GI/Abdominal exam: Present: soft. Absent: distended, tenderness, guarding Extremities exam: Absent: pedal edema Neurological exam: Present: alert, other (Patient is nonverbal; patient localizes to pain in her bilateral lower extremities and her left upper extremity; patient has no response to pain in her right upper extremity; bilateral downgoing Babinski's sign; NIH stroke scale score is 25) Skin exam: Present: warm, dry, intact, normal color Course Vital Signs 04/27/20 04/27/20 04/27/20 16:42 16:48 16:59 Temperature 98.0 F Pulse Rate 60 57 L 60 Respiratory 16 16 16 Rate Blood Pressure 192/85 193/89 173/80 O2 Sat by Pulse 96 98 98 Oximetry 04/27/20 04/27/20 04/27/20 17:00 17:15 17:18 Temperature Pulse Rate 58 L 48 L 58 L Respiratory 18 18 16 Rate Blood Pressure 173/80 168/75 168/75 O2 Sat by Pulse 99 97 97 Oximetry 01/04/27/20 04/27/20 17:30 17:45 18:00 Temperature 98.1 F 98.1 F Pulse Rate 58 L 63 53 L Respiratory 16 16 17 Rate Blood Pressure 168/75 153/73 166/80 O2 Sat by Pulse 97 97 97 Oximetry - Reevaluation(s) Reevaluation #1: 04/27/20 17:08 Case and H&P were discussed with Dr. Sellers (neurointerventionalist). He has reviewed the patient's noncontrast head CT himself, and given the patient's symptoms/exam, he recommends TPA administration so long as the patient does not have any exclusion criteria. He has no further recommendations at this time. 04/27/20 17:15 Patient's son is now in the ED at bedside with the patient. Patient's son reports that the patient suddenly became unresponsive and developed drooling and right arm weakness at about 1600 today. Patient's son is aware of my discussion with Dr. Sellers as above. He agrees with and consents for IV TPA administration (I have explained to him the risks of IV TPA administration, and he understands the potential for life-threatening bleeding). He confirms that the patient has not had any surgeries in the past 3 months, and he is unaware of any head injuries over the past 3 months. 04/27/20 17:55 Dr. Sellers is aware of the patient's CT angiogram findings, and he recommends transferring the patient to [facility] at this time. He has no further recommendations at this time. 04/27/20 18:11 Case, H&P, test results, ED management and my discussion with Dr. Sellers as above were discussed with Dr. Galvan (ED physician at [facility]). He accepts ambulance transfer to the [facility] ED. He has no further recommendations at this time. EKG Findings - EKG Comments: EKG Findings:: Sinus bradycardia, ventricular rate of 57 bpm, normal MD and QRS intervals, normal QT interval, normal axis, no ST or T-wave abnormality Medical Decision Making - Medical Decision Making Patient's symptoms and exam are concerning for acute CVA. Patient's CT imaging is negative. Patient did meet inclusion criteria for TPA, and she did not have any exclusion criteria. IV TPA was administered after discussion with Dr. Bhagat and the patient's son. There is no neurology coverage here at our hospital this weekend, so arrangements were made to transfer the patient to [facility]. Patient was also treated with IV medications for hyperkalemia. Patient has no EKG changes associated with hyperkalemia. - Lab Data Result diagrams: 04/27/20 16:58 04/27/20 16:58 Lab Results 04/27/20 04/27/20 04/27/20 Range/Units 16:43 16:58 16:58 WBC 6.2 (3.8-10.6) k/uL RBC 4.00 (3.80-5.40) m/uL Hgb 11.9 (11.4-16.0) gm/dL Hct 37.4 (34.0-46.0) % MCV 93.5 (80.0-100.0) fL MCH 29.6 (25.0-35.0) pg MCHC 31.7 (31.0-37.0) g/dL RDW 14.6 (11.5-15.5) % Plt Count 163 (150-450) k/uL MPV 7.9 Neutrophils % 65 % Lymphocytes % 23 % Monocytes % 8 % Eosinophils % 2 % Basophils % 0 % Neutrophils # 4.0 (1.3-7.7) k/uL Lymphocytes # 1.4 (1.0-4.8) k/uL Monocytes # 0.5 (0-1.0) k/uL Eosinophils # 0.1 (0-0.7) k/uL Basophils # 0.0 (0-0.2) k/uL PT 9.7 (9.0-12.0) sec INR 0.9 (<1.2) APTT 22.2 (22.0-30.0) sec Sodium (137-145) mmol/L Potassium (3.5-5.1) mmol/L Chloride (98-107) mmol/L Carbon Dioxide (22-30) mmol/L Anion Gap mmol/L BUN (7-17) mg/dL Creatinine (0.52-1.04) mg/dL Est GFR (CKD-EPI)AfAm (>60 ml/min/1.73 sqM) Est GFR (CKD-EPI)NonAf (>60 ml/min/1.73 sqM) Glucose (74-99) mg/dL POC Glucose (mg/dL) 229 H (75-99) mg/dL POC Glu German Teacher Diana Feliciano Calcium (8.4-10.2) mg/dL Total Bilirubin (0.2-1.3) mg/dL AST (14-36) U/L ALT (4-34) U/L Alkaline Phosphatase (38-126) U/L Troponin I (0.000-0.034) ng/mL Total Protein (6.3-8.2) g/dL Albumin (3.5-5.0) g/dL Serum Alcohol mg/dL 04/27/20 04/27/20 Range/Units 16:58 16:58 WBC (3.8-10.6) k/uL RBC (3.80-5.40) m/uL Hgb (11.4-16.0) gm/dL Hct (34.0-46.0) % MCV (80.0-100.0) fL MCH (25.0-35.0) pg MCHC (31.0-37.0) g/dL RDW (11.5-15.5) % Plt Count (150-450) k/uL MPV Neutrophils % % Lymphocytes % % Monocytes % % Eosinophils % % Basophils % % Neutrophils # (1.3-7.7) k/uL Lymphocytes # (1.0-4.8) k/uL Monocytes # (0-1.0) k/uL Eosinophils # (0-0.7) k/uL Basophils # (0-0.2) k/uL PT (9.0-12.0) sec INR (<1.2) APTT (22.0-30.0) sec Sodium 136 L (137-145) mmol/L Potassium 6.1 H* (3.5-5.1) mmol/L Chloride 110 H (98-107) mmol/L Carbon Dioxide 18 L (22-30) mmol/L Anion Gap 8 mmol/L BUN 42 H (7-17) mg/dL Creatinine 3.33 H (0.52-1.04) mg/dL Est GFR (CKD-EPI)AfAm 14 (>60 ml/min/1.73 sqM) Est GFR (CKD-EPI)NonAf 12 (>60 ml/min/1.73 sqM) Glucose 222 H (74-99) mg/dL POC Glucose (mg/dL) (75-99) mg/dL POC Glu German Teacher ID Calcium 9.1 (8.4-10.2) mg/dL Total Bilirubin 0.5 (0.2-1.3) mg/dL AST 42 H (14-36) U/L ALT 74 H (4-34) U/L Alkaline Phosphatase 84 (38-126) U/L Troponin I <0.012 (0.000-0.034) ng/mL Total Protein 7.1 (6.3-8.2) g/dL Albumin 3.9 (3.5-5.0) g/dL Serum Alcohol <10 mg/dL - Radiology Data Radiology results: report reviewed (Noncontrast head CT: No acute abnormality; CT angiogram head/neck: Negative CT angiogram of the brain, no evidence of hemodynamic stenosis) Critical Care Time Critical Care Time: Yes (Acute CVA with TPA administration) Total Critical Care Time: 60 Disposition Clinical Impression: Altered mental status, Chronic renal insufficiency, Hyperkalemia Narrative: Suspected acute CVA Disposition: OTHER INSTITUTION NOT DEFINED Condition: Stable Is patient prescribed a controlled substance at d/c from ED?: No Referrals: None,Stated [REFERRING] - 1-2 days Time of Disposition: 18:11 - Out of Hospital Transfer - Req. Specs Out of Hospital Transfer - Requested Specifics: Other Emergency Center ([facility])
[2020-04-27] MEDS ORDERED: Alteplase PER PHARMACY Stroke 1 EACH MISC MISCELLANE PRN (17:10)
[2020-04-27] MEDS ORDERED: ALTEPLASE 44 MG in EMPTY BAG 1 BAG IV STA (17:14)
[2020-04-27] MEDS ORDERED: ALTEPLASE BOLUS 5 MG in EMPTY SYRINGE 1 SYR IV STA (17:14)
[2020-04-27] MEDS ORDERED: niCARdipine 20 MG in SODIUM CHLORIDE 0.9% 192 ML IV SCH (17:15)
--- NOTE | 2020-04-27 17:20 | CT ---
EXAMINATION TYPE: CT brain wo con for TPA DATE OF EXAM: 04/27/2020 COMPARISON: None HISTORY: Unresponsive, right sided facial droop. CT DLP: 1016.8 mGycm Automated exposure control for dose reduction was used. There is hypodensity in the periventricular white matter. There is no mass effect nor midline shift. There is no sign of intracranial hemorrhage. Calvarium is intact. There is cerebral cortical atrophy. 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 No acute abnormality.
[2020-04-27] MEDS ORDERED: ONDANSETRON 4 MG/2 ML VIAL IVP STA (17:28)
[2020-04-27 17:29] LABS: Basophils % (A) 0 %; Eosinophils # (A) 0.1 k/uL (0-0.7); Eosinophils % (A) 2 %; HCT 37.4 % (34.0-46.0); HGB 11.9 gm/dL (11.4-16.0); Lymphocytes # (A) 1.4 k/uL (1.0-4.8); Lymphocytes % (A) 23 %; MCH 29.6 pg (25.0-35.0); MCHC 31.7 g/dL (31.0-37.0); MCV 93.5 fL (80.0-100.0); Mean Platelet Volume 7.9; Monocytes # (A) 0.5 k/uL (0-1.0); Monocytes % (A) 8 %; Neutrophils % (A) 65 %; Platelet Count 163 k/uL (150-450); RDW 14.6 % (11.5-15.5); WBC 6.2 k/uL (3.8-10.6)
--- NOTE | 2020-04-27 17:29 | CT ---
EXAMINATION TYPE: CT angio head neck DATE OF EXAM: 04/27/2020 COMPARISON: None HISTORY: Unresponsive, right sided facial droop. CT DLP: 312 mGycm Automated exposure control for dose reduction was used. CONTRAST: Performed with IV Contrast, patient injected with 65 mL of Isovue 370. There are 3-D post processed images. Images obtained from the aortic arch to the vertex of the brain with IV contrast. There is normal branching pattern of the great vessels on the aortic arch. There is bilateral arteria l flow in the subclavian arteries. There is arterial flow in the common internal and external carotid arteries bilaterally. There is mild plaque formation at the carotid artery bifurcations. There is le ss than 20% stenosis of both internal carotid arteries. There is arterial flow in both vertebral natalie simba. There is arterial flow in the vertebrobasilar artery system. There is no sign of carotid artery or vertebral artery aneurysm or dissection. There is arterial flow in the anterior middle and posterior cerebral arteries. There is no sign of in tracranial aneurysm or neovascularity. There is no mass effect. I see no evidence of intracranial hem odynamic stenosis. There is normal contrast opacification of the venous sinuses. IMPRESSION: Negative CT angiogram of the brain. Minimal plaque at the carotid artery bifurcations. No evidence of hemodynamic stenosis. Moderate athe rosclerotic plaque formation involving the intracranial internal carotid arteries and left vertebral artery.
[2020-04-27 17:39] LABS: INR 0.9 (<1.2); Partial Thromboplastin Time 22.2 sec (22.0-30.0); Prothrombin Time 9.7 sec (9.0-12.0)
[2020-04-27 17:42] LABS: ALT 74 U/L (4-34); AST 42 U/L (14-36); African American GFR (CKD) 14 (>60 ml/min/1.73 sqM); Albumin 3.9 g/dL (3.5-5.0); Alcohol <10 mg/dL; Alkaline Phosphatase 84 U/L (38-126); Anion Gap 8 mmol/L; Blood Urea Nitrogen 42 mg/dL (7-17); Calcium 9.1 mg/dL (8.4-10.2); Carbon Dioxide 18 mmol/L (22-30); Chloride 110 mmol/L (98-107); Glucose 222 mg/dL (74-99); Non-African American GFR(CKD) 12 (>60 ml/min/1.73 sqM); Sodium 136 mmol/L (137-145); Total Bilirubin 0.5 mg/dL (0.2-1.3); Total Protein 7.1 g/dL (6.3-8.2)
[2020-04-27 17:47] LABS: Potassium 6.1 mmol/L (3.5-5.1)
[2020-04-27] MEDS ORDERED: DEXTROSE 50% SYRINGE 50 ML IVP STA (17:51)
[2020-04-27 17:52] VITALS: TEMP 98.1
[2020-04-27] MEDS ORDERED: INSULIN REGULAR 100 UNIT/ML VIAL IV ONE (17:52)
[2020-04-27] MEDS ORDERED: SODIUM BICARB 8.4% 50 ML SYR (1 MEQ/ML) IV STA (17:52)
--- NOTE | 2020-04-27 18:08 | XR ---
EXAMINATION TYPE: XR chest 1V portable DATE OF EXAM: 04/27/2020 COMPARISON: 11/06/2016 HISTORY: Altered mental status TECHNIQUE: FINDINGS: There is some coarsening of the interstitial pulmonary markings. There is no obvious heart failure. Thoracic aorta is atheromatous. There is no definite pleural effusion. IMPRESSION: Increased interstitial density suggestive of some mild fibrosis. No pulmonary consolidati on or heart failure. No significant change.
[2020-04-27 18:22] VITALS: BP 195/91; PULSE 56; RESP 16
== END 2020-04-27 18:41 | disposition other institution (70) ==
LOC: EC 16:40
DX: R41.82 Altered mental status, unspecified (principal); E87.5 Hyperkalemia; I12.9 Hypertensive chronic kidney disease with stage 1 through stage 4 chronic kidney disease, or unspecified chronic kidney disease; E11.22 Type 2 diabetes mellitus with diabetic chronic kidney disease; N18.9 Chronic kidney disease, unspecified; Z79.899 Other long term (current) drug therapy; Z79.84 Long term (current) use of oral hypoglycemic drugs; Z79.890 Hormone replacement therapy
CPT/HCPCS: 36415; 93005; 80053; 84484; 85025; 85610; 85730; 71045; 70496; 70450; 70498; 99291; 96365; 96375 ×3; G0480; J2997; J2405; Q9967; 80320